=== PATIENT | male | born 1965 | race Caucasian/White ===

== ENCOUNTER → 2022-11-20 08:28 | Outpatient (BNVA) | payer MEDICAID, SELFPAY | PROVIDERS: PCP Family Medicine; Referring Provider Family Medicine; Visit Provider Physician Assistant Surgical | DX: Z13.89 Encounter for screening for other disorder (principal) ==

== ENCOUNTER → 2022-12-04 08:33 | Outpatient (BNVA) | payer MEDICAID, SELFPAY | PROVIDERS: PCP Family Medicine; Visit Provider Physician Assistant | DX: E66.01 Morbid (severe) obesity due to excess calories (principal); Z98.84 Bariatric surgery status; Z68.41 Body mass index [BMI] 40.0-44.9, adult | CPT/HCPCS: 99202 ==

== ENCOUNTER → 2022-12-26 14:42 | Outpatient (BNVA) | payer MEDICAID, SELFPAY | PROVIDERS: PCP Family Medicine; Visit Provider Physician Assistant | DX: E66.01 Morbid (severe) obesity due to excess calories (principal); K22.70 Barrett's esophagus without dysplasia; G80.9 Cerebral palsy, unspecified; Z98.84 Bariatric surgery status; Z68.39 Body mass index [BMI] 39.0-39.9, adult | CPT/HCPCS: 99212 ==

== ENCOUNTER 2022-12-31 09:13 | Outpatient (REF) | payer MEDICAID, SELFPAY ==
--- NOTE | ~2022-12-31 | XR_ITS ---
EXAMINATION: XR CHEST CLINICAL INFORMATION: Morbid obesity COMPARISON: None TECHNIQUE: 2 views of the chest were obtained. FINDINGS: No significant abnormality is noted involving the heart, lungs, mediastinum, bony thorax or soft tissues. XR/XR chest 2V IMPRESSION: No acute disease.
[2022-12-31 09:33] LABS: MANUAL DIFF FLAG NO
--- NOTE | 2022-12-31 09:36 | ECG_ITS ---
Test Reason : e66.01 Blood Pressure : / mmHG Vent. Rate : 079 BPM Atrial Rate : 079 BPM P-R Int : 192 ms QRS Dur : 090 ms QT Int : 380 ms P-R-T Axes : 038 -07 -12 degrees QTc Int : 435 ms Normal sinus rhythm cannot exclude old Inferior infarct , age undetermined ; could be related to body habitus and lead placement Borderline ECG No previous ECGs available Referred By: Camila Mensah Electronically Signed By:DOMINIQUE BROWN
[2022-12-31 10:05] LABS: Basophils Percent Auto 0.5 % (0-2); Eosinophils Absolute Auto 0.2 X10*3/uL (0.0-0.4); Hematocrit 49.1 % (42.0-52.0); Hemoglobin 16.5 g/dl (14.0-18.0); Imm Gran Abs Auto 0.07 X10*3/uL (0.00-0.03); Imm Gran Pct Auto 1.2 % (0.0-0.4); Lymphocytes Absolute Auto 1.5 X10*3/uL (1.2-4.9); Lymphocytes Percent Auto 27.4 % (20-40); Mean Corpuscular HGB Conc 33.6 g/dl (31.0-36.0); Mean Corpuscular Hemoglobin 30.1 pg (27.0-33.0); Mean Corpuscular Volume 89.6 fL (80.0-98.0); Mean Platelet Volume 10.1 fL (9.4-12.4); Monocytes Absolute Auto 0.4 X10*3/uL (0.1-1.2); Monocytes Percent Auto 6.6 % (2-11); Neutrophils Absolute Auto 3.5 x10*3/uL (2.0-8.3); Neutrophils Percent Auto 61.3 % (45-73); Platelet Count 187 X10*3/uL (160-400); Red Blood Count 5.48 X10*6/uL (4.60-5.80); Red Cell Distribution Width 13.4 % (11.0-16.0); White Blood Count 5.6 X10*3/uL (4.8-10.8)
[2022-12-31 10:15] LABS: Estimated Average Glucose 131 mg/dL; Hemoglobin A1c % 6.2 %
[2022-12-31 10:44] LABS: Alanine Aminotransferase 24 U/L (0-40); Albumin Level 4.4 g/dL (3.5-5.0); Alkaline Phosphatase 76 U/L (39-117); Anion Gap 12 (12-20); Aspartate Amino Transferase 27 U/L (5-37); Bilirubin Total 0.9 mg/dL (0.0-1.0); Blood Urea Nitrogen 27 mg/dL (9-16); C Reactive Protein < 0.10 mg/dL (< or = 0.50); Calcium 8.5 mg/dL (8.4-10.2); Carbon Dioxide 26 mmol/L (22-29); Chloride 110 mmol/L (96-108); Cholesterol 167 mg/dL; Estimated Glomerular Filt Rate > 60; Glucose Random 109 mg/dL (60-115); HDL Cholesterol 40 mg/dL; Iron 72 mcg/dL (45-160); LDL Cholesterol Calculated 119 mg/dl; Percent Iron Saturation 21 % (15-50); Potassium 4.2 mmol/L (3.3-5.1); Sodium 144 mmol/L (135-145); Total Iron Binding Capacity 340 mcg/dL (228-428); Triglycerides 44 mg/dL; Unsaturated Iron Binding 268 ug/dL
[2022-12-31 11:21] LABS: Ferritin 15 ng/mL (20-250); Folate 17.6 ng/mL (> or = 4.0); Insulin 12 uU/mL (2-29); TSH reflex Free T4 2.44 uIU/mL (0.32-4.0); Vitamin B12 > 2000 pg/mL (200-900); Vitamin D 25-OH Total 26.6 ng/mL (>30)
[2023-01-02 12:24] LABS: Calcium (PTHI) 8.6 mg/dL (8.6-10.3); PTHI 83 pg/mL (16-77)
[2023-01-04 15:04] LABS: Zinc 63 mcg/dL (60-130)
[2023-01-05 12:20] LABS: Vitamin B1 12 nmol/L (8-30)
[2023-01-06 23:49] LABS: Vitamin A 45 mcg/dL (38-98)
== END 2022-12-31 09:14 | disposition home or self-care (01) ==
LOC: HO.LAB 09:13
PROVIDERS: PCP Family Medicine; Visit Provider Physician Assistant
DX: Z01.818 Encounter for other preprocedural examination (principal); E66.01 Morbid (severe) obesity due to excess calories; Z98.84 Bariatric surgery status
CPT/HCPCS: 36415; 71046; 80053; 80061; 82306; 82607; 82728; 82746; 83036; 83525; 83540; 83970; 84425; 84443; 84590; 84630; 85025; 86140; 93005

== ENCOUNTER → 2023-01-23 13:39 | Outpatient (BNVA) | payer MEDICAID, SELFPAY | PROVIDERS: PCP Family Medicine; Visit Provider Physician Assistant ==

== ENCOUNTER → 2023-02-02 11:05 | Outpatient (BNVA) | payer OTHER, SELFPAY | PROVIDERS: PCP Family Medicine; Visit Provider Dietitian, Registered | DX: E66.01 Morbid (severe) obesity due to excess calories (principal); Z68.38 Body mass index [BMI] 38.0-38.9, adult | CPT/HCPCS: 97802 ==

== ENCOUNTER 2023-02-10 08:35 | Outpatient (REF) | payer OTHER, SELFPAY | END 2023-02-10 08:36 | disposition home or self-care (01) | LOC: HO.US 08:35 | PROVIDERS: PCP Family Medicine; Visit Provider Physician Assistant | DX: Z13.89 Encounter for screening for other disorder (principal) ==

== ENCOUNTER 2023-02-17 | Outpatient (REF) | payer OTHER, SELFPAY ==
[2023-02-21 14:08] LABS: H Pylori Breath Test Negative (Negative)
== END 2023-02-17 00:01 | disposition home or self-care (01) ==
LOC: HO.LNP
PROVIDERS: Visit Provider Physician Assistant
DX: Z01.818 Encounter for other preprocedural examination (principal); E66.01 Morbid (severe) obesity due to excess calories; Z98.84 Bariatric surgery status
CPT/HCPCS: 83013

== ENCOUNTER 2023-02-18 08:44 | Outpatient (REF) | payer OTHER, SELFPAY ==
--- NOTE | ~2023-02-18 | US_ITS ---
EXAMINATION: US COMPLETE ABDOMEN WITH LIVER ELASTOGRAPHY CLINICAL INFORMATION: Morbid/severe obesity due to excess calories. COMPARISON: None available. TECHNIQUE: Real-time imaging of the abdominal viscera. Noninvasive ultrasound liver fibrosis assessment is performed using Jackie ElastPQ point quantification shear wave elastography (2D-SWE) with a C5-2 MHz transducer. Multiple elastography samples are obtained. FINDINGS: PANCREAS: The entire pancreas obscured by gas. ABDOMINAL AORTA: The middle, and distal aortic segments are normal in caliber. The proximal abdominal aorta is obscured by overlying gas. INFERIOR VENA CAVA: Most of the IVC is obscured. LIVER AND DUCTS: The liver demonstrates normal size, contour and increased echogenicity. No focal lesion or intrahepatic biliary duct dilatation. The right lobe measures 16.8 cm in length. The left lobe measures 11.4 cm in length. Portal flow is hepatopedal. Shear wave liver elastography median stiffness is 1.30 m/s (reference: normal median stiffness is 1.3 m/s or less). The median stiffness evaluation is slightly limited due to higher position of liver under subcostal region and increased sample depth from the skin. IQR/median stiffness to assess sampling precision is 0.12 (reference: good quality data set is IQR/median stiffness of 0.15 or less). GALLBLADDER: There are multiple echogenic gallstones without wall thickening. The gallbladder wall thickness measures 0.2 cm. No pericholecystic fluid collection seen. COMMON BILE DUCT: Normal in caliber measuring 0.4 cm in diameter. RIGHT KIDNEY: Normal. No hydronephrosis. No renal calculi or focal parenchymal lesions. The kidney measures 11.3 cm in maximum dimension. LEFT KIDNEY: Normal. No hydronephrosis. No renal calculi or focal parenchymal lesions. The kidney measures 11.9 cm in maximum dimension. SPLEEN: Normal. The spleen measures 12.3 cm in maximum dimension. FREE FLUID: None. US/US abdomen comp w elastography IMPRESSION: Cholelithiasis without wall thickening or tenderness. Mild hepatic steatosis. No focal lesion seen. Liver elastography: Median liver stiffness measures 1.30 m/s corresponding to high probability normal. Please note the evaluation is slightly limited due to subcostal position of the liver and increased depth from the skin. REFERENCE: Society of Radiologists in Ultrasound Liver Stiffness Thresholds (2020): LIVER STIFFNESS THRESHOLDS: *Liver Stiffness equal or less than 1.3 m/s: High probability of being normal. *Liver Stiffness less than 1.7 m/s: In the absence of other known clinical signs, rules out compensated advanced chronic liver disease. *Liver Stiffness 1.7-2.1 m/s: Suggestive of compensated advanced chronic liver disease but need further test for confirmation. *Liver Stiffness over 2.1 m/s: Rules in compensated advanced chronic liver disease. *Liver Stiffness over 2.4 m/s: Suggestive of clinically significant portal hypertension. QUALITY OF DATA SET: *IQR/Median value equal or less than 0.15 implies a quality data set. *IQR/Median value over 0.15 implies a poor quality data set. SIGNIFICANT CHANGE FROM PRIOR EXAM: Significant change if liver stiffness measurement is 10% or greater from prior exam. OTHER CONSIDERATIONS: The stage of liver fibrosis may be overestimated in the setting of acute hepatitis, liver inflammation, elevated liver function tests, hepatic vascular congestion, obstructive cholestasis, non-fasting state, and infiltrative diseases such as amyloidosis and lymphoma. In some patients with NAFLD, the liver stiffness thresholds for compensated advanced chronic liver disease may be lower. In causes other than viral hepatitis and NAFLD, liver stiffness thresholds are not well established.
== END 2023-02-18 08:45 | disposition home or self-care (01) ==
LOC: HO.US 08:44
PROVIDERS: PCP Family Medicine; Visit Provider Physician Assistant
DX: Z01.818 Encounter for other preprocedural examination (principal); K21.9 Gastro-esophageal reflux disease without esophagitis; E66.01 Morbid (severe) obesity due to excess calories; Z98.84 Bariatric surgery status
CPT/HCPCS: 76705; 76981

== ENCOUNTER 2023-02-19 08:01 | Outpatient (REF) | payer OTHER, SELFPAY ==
--- NOTE | ~2023-02-19 | FL_ITS ---
EXAMINATION: XR FLUOROSCOPY UPPER GI WITH AIR CLINICAL INFORMATION: Morbid obesity. COMPARISON: None available. TECHNIQUE: Air-contrast upper GI examination. FINDINGS: There is normal apposition of vocal cords while saying E . There is normal elevation of the soft palate while saying candy . Patient swallowed thin and thick barium and half-inch diameter barium tablet without difficulty. No nasopharyngeal reflux or tracheal aspiration was identified. No persistent esophageal stricture was identified. No definite esophageal ulceration is seen. There is noted to be mild gastroesophageal reflux within the distal third of the esophagus which clears slowly. On some images of the distal esophagus, there appears be a possible sliding hiatal hernia with small ulceration versus old; however, on other images I do not see a hiatal hernia and the gastroesophageal junction is widely patent. This appearance is likely related to sliding hiatal hernia with prominent folds. No definite Zarate's esophagus to this level is identified. Patient is status post gastric bypass surgery with Ruben-en-Y. The gastric remnant is distensible without definite erosion or mass appreciated. There is no delay in gastric emptying. FLUOROSCOPY TIME: 2.8 minutes. DOSE AREA PRODUCT: 48.7-1 Gy-cm2 (tovar-centimeter squared). FL/FL upper GI w air IMPRESSION: Status post gastric bypass with Ruben-en-Y with no abnormal mass to suggest malignancy identified. Probable sliding hiatal hernia with prominent folds. Widely patent gastroesophageal junction with mild reflux.
== END 2023-02-19 08:02 | disposition home or self-care (01) ==
LOC: HO.XRAY 08:01
PROVIDERS: PCP Family Medicine; Visit Provider Physician Assistant
DX: Z01.818 Encounter for other preprocedural examination (principal); E66.01 Morbid (severe) obesity due to excess calories; Z98.84 Bariatric surgery status
CPT/HCPCS: 74246

== ENCOUNTER 2023-03-03 11:56 | Day surgery (SDC) | payer OTHER, SELFPAY ==
--- NOTE | 2023-02-27 21:51 | MHC.SHP ---
Pre-Procedural Eval Section A Date of Service: 02/27/23 The patient is an INPATIENT: No The History & Physical has been completed within 30 days and I have reviewed it.: Yes Section B Chief Complaint: Bariatric surgery status Relevant Family History (Specify if Yes): No Relevant Social History: None Present Medications: None Medical History: No relevant PMH History of Previous Operations: Relevant previous surgery/procedure and date(s) (laparoscopic gastric bypass) Allergies: Allergies Allergy/AdvReac Type Severity Reaction Status Date / Time Penicillins Allergy Mild Hives Verified 02/18/23 09:58 BACTRIM Allergy Severe Anaphylaxis Uncoded 11/20/22 09:08 DOXICYCLINE Allergy Severe Anaphylaxis Uncoded 11/20/22 09:08 TEGRETOL Allergy Severe Anaphylaxis Uncoded 11/20/22 09:08 Review of Systems Sugical H&P ROS: Negative: Constitution, Cardiovascular, Respiratory, Neurological, Psychiatric, Hem-Onc, Allergic/Immunologic, Genitourinary, Musculoskeletal, Integumentary, Endocrine and Eyes/Ears/Nose/Throat and Yes, Specify: Gastrointestinal (GERD) Exam Surgical H&P Exam: Normal: HEENT, Normal: Heart, Normal: Lungs, Normal: Extremities, Normal: Abdomen, Normal: Skin and Normal: Neurological Plan Diagnosis/Plan: Unchanged (EGD to assess for esphagitis. Risks for perforation and bleeding were discussed with patient. She is in agreement with the plan) I have reviewed the history and physical and performed a pertinent physical examination on my patient. No changes have occurred unless specified. Time Spent With Patient Time: Total time managing care of this patient today ____ minutes.
--- NOTE | 2023-03-02 10:21 | HO.ANESPROP2 ---
Documented by User: Isis Ku NP 03/02/23 10:23 HPI - Anesthesia Eval Consult details Narrative: 57yo M for Upper Endoscopy 01/15 cardiac visit - Nml Echo, False + stress test, Minimal CAD single vessel disease by cath, cardiac f/u prn only PMFSH Active Problems Active Problems: All Active Problems (Updated 02/23/23 @ 11:20 by Shikha Bo CMA) Adjustment disorder, unspecified (Acute) Pre-op evaluation (Acute) Cerebral palsy (Acute) Occasional tremors (Acute) Barretts esophagus (Acute) Hx of gastric bypass (Acute) Morbid obesity (Acute) Past Medical History Medical History COVID Family History Family History Mother Heart problem Memory loss Father Stroke Son Obesity Daughter Mental health problem Anxiety Depression Surgical History Surgical History Hx of colonoscopy Hx of gastric bypass Hx of hernia repair Hx of vasectomy Social History Social History Alcohol intake: current Alcohol intake frequency: other Patient Tobacco Use Status: Never used Tobacco Meds Allergies Allergy/AdvReac Type Severity Reaction Status Date / Time sulfamethoxazole Allergy Severe Anaphylaxis Verified 03/02/23 10:43 [From Bactrim] trimethoprim [From Bactrim] Allergy Severe Anaphylaxis Verified 03/02/23 10:43 Penicillins Allergy Mild Hives Verified 02/18/23 09:58 carbamazepine [From Tegretol] Allergy Anaphylaxis Verified 03/02/23 10:43 doxycycline Allergy Anaphylaxis Verified 03/02/23 10:43 Home Medications Medication Instructions Recorded Confirmed Last Taken Type cholecalciferol (vitamin D3) 25 25 mcg PO DAILY 11/20/22 12/26/22 Unknown History mcg (1,000 unit) capsule (Vitamin D3) mecobalamin (vitamin B12) 1,000 1,000 mcg PO DAILY 11/20/22 12/26/22 Unknown History mcg lozenges appkfait-nkgheuqk-yrak 45 mg-folic cap PO 11/20/22 12/26/22 Unknown History acid 800 mcg-vit K 120 mcg capsule (Bariatric Multivitamins) pantoprazole 40 mg tablet,delayed 40 mg PO DAILY 11/20/22 12/26/22 Unknown History release Exam Exam Date and Time: March 02, 2023 1021 Pertinent Lab Results Pertinent Lab Results: Laboratory Tests 12/31/22 12/31/22 09:33 09:33 WBC 5.6 Hgb 16.5 Hct 49.1 Plt Count 187 Sodium 144 Potassium 4.2 Chloride 110 H Carbon Dioxide 26 BUN 27 H Creatinine 1.01 Narrative Narrative: EKG 12/2022 Vent. Rate : 079 BPM ? ? Atrial Rate : 079 BPM ?? P-R Int : 192 ms? QRS Dur : 090 ms ? ? QT Int : 380 ms ? ? ? P-R-T Axes : 038 -07 -12 degrees ?? QTc Int : 435 ms ? Normal sinus rhythm cannot exclude old? Inferior infarct , age undetermined ; could be related to body habitus and lead placement Borderline ECG No previous ECGs available Assessment and Plan Assessment Anesthesia Assessment: Chart Reviewed Documented by User: Anne Marie Rivers MD 03/03/23 13:43 PMFSH Past Medical History Medical History COVID Family History Family History Mother Heart problem Memory loss Father Stroke Son Obesity Daughter Mental health problem Anxiety Depression Surgical History Surgical History Hx of colonoscopy Hx of gastric bypass Hx of hernia repair Hx of vasectomy History of Problems with Anesthesia: No Social History Social History Alcohol intake: current Alcohol intake frequency: other Patient Tobacco Use Status: Never used Tobacco Meds Allergies Allergy/AdvReac Type Severity Reaction Status Date / Time sulfamethoxazole Allergy Severe Anaphylaxis Verified 03/02/23 10:43 [From Bactrim] trimethoprim [From Bactrim] Allergy Severe Anaphylaxis Verified 03/02/23 10:43 Penicillins Allergy Mild Hives Verified 02/18/23 09:58 carbamazepine [From Tegretol] Allergy Anaphylaxis Verified 03/02/23 10:43 doxycycline Allergy Anaphylaxis Verified 03/02/23 10:43 Home Medications Medication Instructions Recorded Confirmed Last Taken Type cholecalciferol (vitamin D3) 25 25 mcg PO DAILY 11/20/22 12/26/22 Unknown History mcg (1,000 unit) capsule (Vitamin D3) mecobalamin (vitamin B12) 1,000 1,000 mcg PO DAILY 11/20/22 12/26/22 Unknown History mcg lozenges nbdelzcq-eglwuegl-ahsz 45 mg-folic cap PO 11/20/22 12/26/22 Unknown History acid 800 mcg-vit K 120 mcg capsule (Bariatric Multivitamins) pantoprazole 40 mg tablet,delayed 40 mg PO DAILY 11/20/22 12/26/22 Unknown History release Exam Airway Mallampati Class: III TM Dist: >3cm Neck ROM: Full Partial: Upper and Lower Loose/Missing/Broken Teeth: Yes, Upper and Lower Heart: RRR Lungs: CTA Assessment and Plan Assessment Anesthesia Assessment: Anesthesia Plan Discussed Final Anesthetic Review History of Problems with Anesthesia: No NPO: Yes ASA Class: III Final Preanesthetic Review: Meds/Allgs Chart Reviewed, Consent Obtained/Reviewed and Anes Risks/Benef Reviewed Patient Risk: Intermediate Procedure Risk: Intermediate Anesthetic Plan Anesthetic Plan: MAC: Disposition: Standard PACU
[2023-03-02 15:18] LABS: COVID-19 Test Negative (Negative); IDNOW Serial# 08D9AD1C
[2023-03-03 12:06] VITALS: BMI 38.5
[2023-03-03 12:09] VITALS: BP 132/75; PULSE 67; RESP 16; TEMP 36.1; O2SAT 98; BMI 38.5
[2023-03-03] MEDS: Lactated Ringers 1,000 ML 80 ML IVCONT (12:45)
[2023-03-03 13:35] VITALS: BP 120/47; PULSE 58; RESP 20; TEMP 36.3; O2SAT 98
--- NOTE | 2023-03-03 13:36 | P.BOP_ITS ---
Brief Operative Note Date of Service: 03/03/23 Pre-op diagnosis: Zarate's esophagus Post-op diagnosis: same (1) hiatal hernia, 2) esophagitis, 3) large gastric pouch, 4) candy cane GJ anastomosis) Procedure: PROCEDURE DATE: 03/03/2023 PREOPERATIVE DIAGNOSIS: GERD, s/p gastric bypass POSTOPERATIVE DIAGNOSIS: ?Same as above. 1) Redundant gastric pouch, 2) Candy cane gastro-jejunostomy, 3) hiatal hernia, 4) esophagitis PROCEDURE: Vghdomqp-dxmneu-iyfgcpihmxo with biopsies Surgeon: ?Jose Manuel Roberts M.D.. Ph.D. Schedule Announcer: ?None ? Anesthesia: IV sedation Estimated blood loss: ?Minimal FINDINGS AND PROCEDURE: ? OPERATIVE INDICATIONS: ?The patient is a 57 year old male known to me who underwent a laparoscopic gastric bypass elsewhere. The patient had inadequate weight loss so far and has GERD and Zarate's esophagus.? Based on this information I recommended an upper endoscopy to evaluate the patient's symptoms.? Risks and complications of the surgery were discussed with the patient in advance particularly the possibility of perforation or bleeding that may require surgical intervention. The patient understood the risks and was in agreement with the plan. ? PROCEDURE: After informed consent was obtained by the patient, the patient was ?transferred to the Operating Room and was placed in the supine position.? After successful induction of IV sedation, a mouth block was placed and the patient was placed in the left lateral decubitus position. An upper endoscopy was performed next, the oropharynx and esophagus appeared within the normal limits. There was a small 3cm hiatal hernia.? The z-line was irregular with tongues of gastric mucosa protruding into the esophagus to more than 50% circumference. Two biopsies were obtained from the distal esophagus 2-3 cm proximal to the GE junction and two biopsies from the GE junction. The gastric pouch was entered, appeared to be very long and lateral redundancy (z-line at 41cm and GJ anastomosis at 58cm). There was no gastritis and the leah rojejunostomy was very large and patent. A biopsy was obtained from the gastric pouch. No significant bleeding was noted from any of the biopsy sites. There was no anastomotic ulcer.? At that point the scope was advanced into the proximal small intestine (proximal Ruben limb) which appeared to be normal. The blind end of the Ruben limb was elongated (candy cane configuration). The Ruben limb and the pouch were decompressed and the scope was withdrawn from the patient's mouth. The patient was awaken and was transferred in stable condition to the Recovery Room for further care. I was present and performed all steps of the procedure. There were no residents to assist with this case. Jose Manuel Roberts M.D., Ph.D. Surgeon: Zelalem Roberts MD Anesthesia: MAC Was an Schedule Announcer used for this Procedure?: No Estimated blood loss (mL): 0 IV fluids (mL): 400 Urine output (mL): 0 (No wharton to record output) Pathology: other (1) gastric pouch, 2) GE junction x2, 3) esophagus x2) Condition: stable Disposition: PACU
[2023-03-03 13:50] VITALS: BP 159/77; PULSE 72; RESP 20; TEMP 36.1; O2SAT 97
== END 2023-03-03 14:25 | disposition home or self-care (01) ==
PROVIDERS: Physician Assistant Surgical; PCP Internal Medicine; Visit Provider Surgery
PROC: 0DJ08ZZ Inspection of Upper Intestinal Tract, Via Natural or Artificial Opening Endoscopic (ICD-10-PCS; CPT 43235; principal; 2023-03-03 12:50)
DX: K21.9 Gastro-esophageal reflux disease without esophagitis (principal); Z98.84 Bariatric surgery status; E66.01 Morbid (severe) obesity due to excess calories; K22.70 Barrett's esophagus without dysplasia; K95.89 Other complications of other bariatric procedure; K91.1 Postgastric surgery syndromes; K44.9 Diaphragmatic hernia without obstruction or gangrene; K20.90 Esophagitis, unspecified without bleeding; Z20.822 Contact with and (suspected) exposure to COVID-19; Z79.899 Other long term (current) drug therapy; Z88.0 Allergy status to penicillin; Z88.8 Allergy status to other drugs, medicaments and biological substances
CPT/HCPCS: 43239; 87635; 88305; 88342

== ENCOUNTER → 2023-03-05 11:16 | Outpatient (BNVA) | payer OTHER, SELFPAY | PROVIDERS: PCP Internal Medicine; Visit Provider Dietitian, Registered | DX: E66.01 Morbid (severe) obesity due to excess calories (principal); E11.8 Type 2 diabetes mellitus with unspecified complications | CPT/HCPCS: 97803 ==

== ENCOUNTER → 2023-03-12 15:30 | Outpatient (BNVA) | payer OTHER, SELFPAY | PROVIDERS: PCP Internal Medicine; Visit Provider Physician Assistant ==

== ENCOUNTER → 2023-03-31 15:35 | Outpatient (BNVA) | payer OTHER, SELFPAY | PROVIDERS: PCP Family Medicine; Visit Provider Physician Assistant ==

== ENCOUNTER → 2023-04-20 13:15 | Outpatient (BNVA) | payer OTHER, SELFPAY | PROVIDERS: PCP Family Medicine; Visit Provider Dietitian, Registered | DX: E66.9 Obesity, unspecified (principal); Z68.37 Body mass index [BMI] 37.0-37.9, adult; Z71.3 Dietary counseling and surveillance | CPT/HCPCS: 97803 ==

== ENCOUNTER → 2023-04-27 15:02 | Outpatient (BNVA) | payer OTHER, SELFPAY | PROVIDERS: PCP Family Medicine; Visit Provider Physician Assistant ==

== ENCOUNTER 2023-05-26 13:45 | Outpatient (AMB) | payer OTHER, SELFPAY ==
--- NOTE | 2023-05-26 13:09 | MHC.OFFVISWM ---
Intake VS Expanded 05/26/23 13:54 Height 6 ft 3.5 in Weight 304 lb 9.6 oz BMI 37.6 BP 128/71 Blood Pressure Location Rt brachial Blood Pressure Position Sitting Pulse 87 Pulse Source Pulse Oximeter Temp 97.5 F Temperature Source Temporal Artery Scan Pulse Oximetry 96 Oxygen Delivery Method Room Air Body Fat 107.4 Body Fat Percentage 35.3 Free Fat Mass 197.0 Muscle Mass 187.4 Visceral Mass 21.0 Water Mass 138.0 BMR 2,749 Intake Visit Reasons: (OV) F/U SWL Allergies sulfamethoxazole [From Bactrim] Allergy (Severe, Verified 05/26/23 13:50) Anaphylaxis trimethoprim [From Bactrim] Allergy (Severe, Verified 05/26/23 13:50) Anaphylaxis Penicillins Allergy (Mild, Verified 05/26/23 13:50) Hives carbamazepine [From Tegretol] Allergy (Verified 05/26/23 13:50) Anaphylaxis doxycycline Allergy (Verified 05/26/23 13:50) Anaphylaxis HPI HPI Comments History of Present Illness Details SWL follow up for revision of previous GBP, [employer] weight of 327 lbs. Patient has lost 22.4 lbs or 6.9% Pt states he is back on his food plan over the last month. Shakes at 17:30 and 11:30 am. Bar or yogurt at 2pm Dinner 6-7pm - 4 oz?? lean protein, and not great vegetable choices. Exercise - walks 6 d/ week, doesn;t use his femi BS - no more lows. Pre op work up completed as follows: [facility] classes - 06/02 appts? -01/29, cleared ? ? RD appts??-02/02 and 03/05, next appt 04/20 per Germaine, cleared H pylori?- yesterday negative Labs - done CXR -normal ECG - borderline, NSR ULS- cholelithiasis, mild steatosis UGI?-?Status post gastric bypass with Ruben-en-Y with no abnormal mass to suggest malignancy identified. ? Probable sliding hiatal hernia with prominent folds. Widely patent gastroesophageal junction with mild reflux. EGD done by Dr Jaki Alonso 2023 - ?patient?is surgical candidate with very long gastric pouch and hiatal hernia, normal pthology other than Barretts esophagus. ?? ? PFSH Medical History COVID Surgical History Hx of colonoscopy Hx of gastric bypass Hx of hernia repair Hx of vasectomy Family History Mother Heart problem Memory loss Father Stroke Son Obesity Daughter Mental health problem Anxiety Depression Social History Alcohol intake: current Alcohol intake frequency: other Patient Tobacco Use Status: Never used Tobacco Physical Exam Vital Signs: Last Vital Signs Temp 97.5 F 05/26/23 13:54 Pulse 87 05/26/23 13:54 BP 128/71 05/26/23 13:54 Pulse Ox 96 05/26/23 13:54 Oxygen Delivery Method Room Air 05/26/23 13:54 BMI result Body Mass Index 38.0 Assessment & Plan Assessment & Plan (1) Morbid obesity: Code(s): E66.01 - Morbid (severe) obesity due to excess calories Plan: SWL pt preparing for revision of previous GBP, approved by Dr Pollack. Pt has new information from his insurance company that our services may not be covered after Jun 25. He will call them for more information. He has lsot 22.4 lbs or 6.9%. We did not make any changes to his meal plan. Exercise - unclear how effective his walks are for weight loss, he is reluctant to change them - he did put a pedometer femi on his phone today and I told him he needs to burn 350 calories on each of his walks - and to vary his routes. He is being scheduled for surgical consultation with Dr Jaki castillo, he will call his insurance company for more information regarding his covered benefits. Patient is morbidly obese and is not considered stable at this time. I spent 30 minutes in total with patient reviewing/updating records, examining the patient and counseling the patient on weight management as detailed above. (2) Hx of gastric bypass: Code(s): Z98.84 - Bariatric surgery status (3) Barretts esophagus: Code(s): K22.70 - Zarate's esophagus without dysplasia (4) Cerebral palsy: Code(s): G80.9 - Cerebral palsy, unspecified Coding Level of Care Code Est Pt Level 4 (42467) Diagnoses Morbid obesity E66.01 Hx of gastric bypass Z98.84 Barretts esophagus K22.70 Cerebral palsy G80.9
[2023-05-26 13:54] VITALS: BP 128/71; PULSE 87; TEMP 36.4; O2SAT 96; BMI 37.6
== END 2023-05-26 14:34 | disposition home or self-care (01) ==
PROVIDERS: PCP Family Medicine; Visit Provider Physician Assistant
DX: E66.01 Morbid (severe) obesity due to excess calories (principal); Z98.84 Bariatric surgery status; K22.70 Barrett's esophagus without dysplasia; G80.9 Cerebral palsy, unspecified
CPT/HCPCS: 99214

== ENCOUNTER → 2023-05-26 13:45 | Outpatient (BNVA) | payer OTHER, SELFPAY | PROVIDERS: PCP Family Medicine; Visit Provider Physician Assistant | DX: E66.01 Morbid (severe) obesity due to excess calories (principal); Z98.84 Bariatric surgery status; G80.9 Cerebral palsy, unspecified ==

== ENCOUNTER 2023-06-08 08:25 | Outpatient (AMB) | payer OTHER, SELFPAY ==
--- NOTE | 2023-06-08 12:11 | A.OFFVIS_ITS ---
Intake VS Expanded 06/08/23 13:01 Height 6 ft 3.5 in Weight 300 lb 8 oz BMI 37.1 Body Fat 116.1 Body Fat Percentage 38.6 Free Fat Mass 184.6 Visceral Mass 18 Water Mass 133.2 BMR 2,195 Intake Visit Reasons: TV Consult/Transfer Camila Allergies sulfamethoxazole [From Bactrim] Allergy (Severe, Verified 06/08/23 12:38) Anaphylaxis trimethoprim [From Bactrim] Allergy (Severe, Verified 06/08/23 12:38) Anaphylaxis Penicillins Allergy (Mild, Verified 06/08/23 12:38) Hives carbamazepine [From Tegretol] Allergy (Verified 06/08/23 12:38) Anaphylaxis doxycycline Allergy (Verified 06/08/23 12:38) Anaphylaxis Medication List - Last Reconciled 06/08/23 by Zelalem Roberts MD blood pressure monitor As directed cholecalciferol (vitamin D3) (Vitamin D3) 25 mcg PO DAILY docusate sodium (Colace) 100 mg PO BID kzekdmxhztqh-owv-obyu-FA-vit K 45 mg iron- 800 mcg-120 mcg (Bariatric Multivitamins) caps PO pantoprazole 40 mg PO DAILY HPI TV Consult/Transfer [facility] HPI Details Start time: 12pm, End time: 1.14pm ?I spent 69 minutes speaking with the patient on the phone plus an additional 5 minutes reviewing and updating records for a total of 74 minutes HPI Comments History of Present Illness Details Overall weight loss: 23.8lbs, or 7.335 TBWL Is doing 2 premade Premier protein shakes, a protein bar and a meal (unmeasured) Exercise: walking x5/week for 350 calories PFSH Medical History (Updated 06/08/23 @ 13:12 by Zelalem Roberts MD) COVID Intestinal malabsorption Surgical History Hx of colonoscopy Hx of gastric bypass Hx of hernia repair Hx of vasectomy Family History Mother Heart problem Memory loss Father Stroke Son Obesity Daughter Mental health problem Anxiety Depression Social History Alcohol intake: current Alcohol intake frequency: other Patient Tobacco Use Status: Never used Tobacco Assessment & Plan Assessment & Plan (1) Obesity: Code(s): E66.9 - Obesity, unspecified Plan: 1. Plan for lap sleeve resection of the gastric pouch including upper GI endoscopy. All tests has been completed and reviewed and the patient is cleared for the surgery. ?If diaphragmatic or ventral hernias are present at time of surgery, these will be repaired laparoscopically as well. Risks and complications were discussed in detail including possible conversion to an open procedure, anastomotic leak, bleeding requiring transfusion, small bowel obstruction, , DVT and pulmonary embolism, cardiac, or pulmonary complications, as nursing home complications such as anastomotic ulcer, insufficient weight loss and vitamin deficiencies. I emphasized the importance of close follow-up, adherence to instructions and good communication. So far he has proven to be an excellent communicator and very compliant with all our directions accomplishing a godd weight loss. I believe that he is a good candidate and he is ready. I also told him that there is a possibility of not completing his surgery if I don't feel the anatomy is clear enough to perform the procedure safely and he understands that. 2. Change nutritional plan to one premade Premier protein shake at 7am-9am, 3 Zone Perfect protein bars at 10am-12pm, 1pm-3pm and 4pm-6pm, dinner at 7pm (8 forks of protein and 8 forks of salad or vegetables). If hungry after dinner, do another HALF Zone Perfect protein bar at 9pm-10pm 3. Continue walking 5 days per week and increase calories per walk to 400 4. Send me weight measurements weekly 5. Put a towel under the abdominal pannus continuously to prevent contact between the pannus and the genital area. Please shower daily with antibacterial soap and specifically put soap and water in this area. Apply the antibiotic ointment I will prescribe in this area when it is dry every 8 hours (2) BMI 37.0-37.9, adult: Code(s): Z68.37 - Body mass index [BMI] 37.0-37.9, adult (3) Barretts esophagus: Code(s): K22.70 - Zarate's esophagus without dysplasia (4) Hx of gastric bypass: Code(s): Z98.84 - Bariatric surgery status (5) Intestinal malabsorption: Code(s): K90.9 - Intestinal malabsorption, unspecified (6) Panniculitis: Code(s): M79.3 - Panniculitis, unspecified Telehealth Telehealth Location of provider rendering services: practice address Location of patient: address on file Patient Identification confirmed using: Name, : Yes Telehealth method: voice only Patient verbally consented to treatment: Yes Patient verbally consented to billing insurance company: Yes Minutes spent on Phone/Video with Pt.: 74 Coding Level of Care Code Tele Est Pt Level 5 (53373) Diagnoses Obesity E66.9 BMI 37.0-37.9, adult Z68.37 Barretts esophagus K22.70 Hx of gastric bypass Z98.84 Intestinal malabsorption K90.9 Panniculitis M79.3 Time Spent (min) 74
[2023-06-08 13:01] VITALS: BMI 37.1
== END 2023-06-08 13:15 | disposition home or self-care (01) ==
PROVIDERS: PCP Family Medicine; Visit Provider Surgery
DX: E66.9 Obesity, unspecified (principal); Z68.37 Body mass index [BMI] 37.0-37.9, adult; Z98.84 Bariatric surgery status; K90.9 Intestinal malabsorption, unspecified
CPT/HCPCS: 99443

== ENCOUNTER → 2023-06-08 08:25 | Outpatient (BNVA) | payer OTHER, SELFPAY | PROVIDERS: PCP Family Medicine; Visit Provider Surgery ==

== ENCOUNTER 2023-07-01 07:59 | Outpatient (AMB) | payer OTHER, SELFPAY ==
--- NOTE | 2023-07-01 08:01 | A.OFFVIS_ITS ---
Intake VS Expanded 07/01/23 08:15 Height 6 ft 3.5 in Weight 292 lb 3.2 oz BMI 36.0 BP 107/53 L Blood Pressure Location Rt brachial Blood Pressure Position Sitting Pulse 90 Pulse Source Pulse Oximeter Temp 96.5 F L Temperature Source Tympanic Pulse Oximetry 97 Oxygen Delivery Method Room Air Body Fat 103.6 Body Fat Percentage 35.5 Free Fat Mass 188.4 Muscle Mass 179.2 Visceral Mass 20.0 Water Mass 127.6 BMR 2,615 Intake Visit Reasons: (OV) Pre Op LSG 07/07/23 Allergies sulfamethoxazole [From Bactrim] Allergy (Severe, Verified 07/01/23 08:46) Anaphylaxis trimethoprim [From Bactrim] Allergy (Severe, Verified 07/01/23 08:46) Anaphylaxis Penicillins Allergy (Mild, Verified 07/01/23 08:46) Hives carbamazepine [From Tegretol] Allergy (Verified 07/01/23 08:46) Anaphylaxis doxycycline Allergy (Verified 07/01/23 08:46) Anaphylaxis linezolid Allergy (Verified 07/01/23 08:46) Rash Bqtbtan-NFX-PjE Reductase Inhibitor Allergy (Verified 07/01/23 08:46) Unknown Medication List - Last Reconciled 07/01/23 by Zelalem Roberts MD blood pressure monitor As directed cholecalciferol (vitamin D3) (Vitamin D3) 25 mcg PO DAILY docusate sodium (Colace) 100 mg PO DAILY docusate sodium (Colace) 100 mg PO BID famotidine 20 mg PO DAILY PRN ppllohlfauwk-syh-vand-FA-vit K 45 mg iron- 800 mcg-120 mcg (Bariatric Multivit amins) 2 caps PO DAILY ondansetron 4 mg PO Q12H pantoprazole 40 mg PO DAILY polyethylene glycol 3350 (Miralax) 17 grams PO DAILY sucralfate 10 mL PO BID HPI HPI Comments History of Present Illness Details Overall weight loss: 32.4lbs, or 10% TBWL Is doing 4 Premier protein shakes per day Exercise: walking 4 miles per day [facility] Medical History (Updated 06/30/23 @ 10:11 by Zelalem Roberts MD) Anxiety Barretts esophagus Cellulitis COVID Depression Diabetes mellitus GERD (gastroesophageal reflux disease) Hepatitis History of headache Intermittent explosive disorder Intestinal malabsorption PTSD (post-traumatic stress disorder) Sleep apnea Urethral stricture Surgical History History of ear surgery Hx of colonoscopy Hx of gastric bypass Hx of hernia repair Hx of vasectomy Family History Mother Heart problem Memory loss Father Stroke Son Obesity Daughter Mental health problem Anxiety Depression Social History Are you a primary hearing healthcare practitioner to a significant other at home: No Do you presently have visiting nurse or other home services: No Alcohol intake: current Alcohol intake frequency: does not drink Patient Tobacco Use Status: Never used Tobacco Physical Exam Vital Signs: Last Vital Signs Temp 96.5 F L 07/01/23 08:15 Pulse 90 07/01/23 08:15 BP 107/53 L 07/01/23 08:15 Pulse Ox 97 07/01/23 08:15 Oxygen Delivery Method Room Air 07/01/23 08:15 BMI result Body Mass Index 36.0 GI Inspection: Yes normal to inspection, Yes incision (well healed), Yes Abdominal panniculus present and Yes obesity Palpation (GI): Soft to palpation Extrem Right lower extremity: normal to inspection Left lower extremity: normal to inspection Assessment & Plan Assessment & Plan (1) Obesity: Code(s): E66.9 - Obesity, unspecified Plan: 1. Plan for lap sleeve gastrectomy including upper GI endoscopy. All tests has been completed and reviewed and the patient is cleared for the surgery. ?If diaphragmatic or ventral hernias are present at time of surgery, these will be repaired laparoscopically as well. Risks and complications were discussed in detail including possible conversion to an open procedure, anastomotic leak, bleeding requiring transfusion, small bowel obstruction, , DVT and pulmonary embolism, cardiac, or pulmonary complications, as snf complications such as anastomotic ulcer, insufficient weight loss and vitamin deficiencies. I emphasized the importance of close follow-up, adherence to instructions and good communication. So far he has proven to be an excellent communicator and very compliant with all our directions accomplishing a great weight loss. I believe that he is an excellent candidate and he is ready. ?I also told him that there is a possibility of not completing his surgery if I don't feel the anatomy is clear enough to perform the procedure safely and he understands that. 2. Preop prescriptions were provided and explained the purpose of each one. Need to be purchased preop. Start Pantoprazole now as you get it from the pharmacy, 1 pill per day. Sucralfate and Zofran are for after surgery as needed. 3. Bowel prep: please do 7 packets ?of Miralax mixing each one with a an 8oz glass of water, crystal light, gatorade zero, or propel ?on07/05/23 and the same amount on 07/06/23. Continue the protein shakes during? the bowel prep. 4. Needs to purchase 1oz medicine cups . 5. Needs to purchase Children's liquid Tylenol for postop pain control. 6. He needs to stop the aspirin which he has already stopped. Avoid aspirin, motrin, Advil, Aleve, Ibuprofen, Naproxyn. Tylenol is OK. 7. He needs to purchase the Celebrate 4:1 protein shakes from the hospital's gift shop. 8. Will do basic preop blood work-up any day between Thursday09/30/22 and Thursday10/02/23 fasting for 12 hours and is scheduled to see the Anesthesiologist prior to the day of surgery. 9. Importance of adherence to postop folllow-up and recommendations was underscored and she understands that. 10. Continue with the 4 premade Premier protein shakes per day at 9am-11am, 2pm- 4pm, 6pm-8pm and 9pm-11pm 11. No soups, broths or V8 12. The patient's?medical?history has been reviewed and they are considered low risk for post op DVT and therefore DVT prophylaxis is not considered necessary. Travel after surgery was reviewed. The patient has not disclosed any travel plans during the first 30 days after surgery and they have been advised that within the first 30 days after surgery any bus, plane, train or car travel over 2 hours in duration is contraindicated due to the possibility of developing blood clots from immobility. Any travel, needs to include periods of ambulation of 10 minutes in duration every 2 hours.? Patient was instructed to discuss any plans for travel during this period with their bariatric surgeon.? 13. Please take at the day of surgery the following medications: 14. Absolutely no smoking or vaping, or marijuana until the surgery and for at least the first 4 weeks. Only nicotine patches are allowed. 15. Send me weight measurements on and then on the day of surgery before you go to the hospital. 16. Avoid any steroids by mouth for any reason. Let me know if someone prescribes them to you (2) BMI 37.0-37.9, adult: Code(s): Z68.37 - Body mass index [BMI] 37.0-37.9, adult (3) Barretts esophagus: Code(s): K22.70 - Zarate's esophagus without dysplasia Orders: Orders Type and Screen Today E66.9 - Obesity, unspecified, Z68.37 - Body mass index [BMI] 37.0-37.9, adult Comprehensive Met. Panel Today E66.9 - Obesity, unspecified, Z68.37 - Body mass index [BMI] 37.0-37.9, adult C Reactive Protein Today E66.9 - Obesity, unspecified, Z68.37 - Body mass index [BMI] 37.0-37.9, adult Hemoglobin A1c Today E66.9 - Obesity, unspecified, Z68.37 - Body mass index [BMI] 37.0-37.9, adult Insulin Today E66.9 - Obesity, unspecified, Z68.37 - Body mass index [BMI] 37.0- 37.9, adult Lipid Panel Today E66.9 - Obesity, unspecified, Z68.37 - Body mass index [BMI] 37.0-37.9, adult TSH reflex Free T4 Today E66.9 - Obesity, unspecified, Z68.37 - Body mass index [BMI] 37.0-37.9, adult Prothrombin Time INR Today E66.9 - Obesity, unspecified, Z68.37 - Body mass index [BMI] 37.0-37.9, adult Partial Thromboplastin Time Today E66.9 - Obesity, unspecified, Z68.37 - Body mass index [BMI] 37.0-37.9, adult Complete Blood Count Auto Diff Today E66.9 - Obesity, unspecified, Z68.37 - Body mass index [BMI] 37.0-37.9, adult Medications: New sucralfate 10 mL PO BID 400 mL 2RF K22.70 - Zarate's esophagus without dysplasia ondansetron Only take one every 12 hours as needed if you have nausea 4 mg PO Q12H 20 tabs 0RF nausea and vomiting R11.0 - Nausea polyethylene glycol 3350 (Miralax) Mix each packet with 8oz of water, Crystal light, or Gatorade zero, or Propel and do 7 packets on 07/05/23 and another 7 packets on 07/06/23 17 grams PO DAILY 14 ea 0RF Z01.818 - Encounter for other preprocedural examination Coding Level of Care Code Est Pt Level 4 (68635) Diagnoses Obesity E66.9 BMI 37.0-37.9, adult Z68.37 Barretts esophagus K22.70 Time Spent (min) 30
[2023-07-01 08:15] VITALS: BP 107/53; PULSE 90; TEMP 35.8; O2SAT 97; BMI 36.0
== END 2023-07-01 09:05 | disposition home or self-care (01) ==
PROVIDERS: PCP Family Medicine; Visit Provider Surgery
DX: E66.9 Obesity, unspecified (principal); Z68.37 Body mass index [BMI] 37.0-37.9, adult; K22.70 Barrett's esophagus without dysplasia
CPT/HCPCS: 99214

== ENCOUNTER → 2023-07-01 07:59 | Outpatient (BNVA) | payer OTHER, SELFPAY | PROVIDERS: PCP Family Medicine; Visit Provider Surgery ==

== ENCOUNTER 2023-07-07 06:27 | Inpatient (IN) | payer MEDICAID, SELFPAY ==
[2023-06-25 11:38] VITALS: BMI 35.6
[2023-07-01 09:21] LABS: MANUAL DIFF FLAG NO
[2023-07-01 09:35] LABS: Basophils Percent Auto 0.5 % (0-2); Eosinophils Absolute Auto 0.2 X10*3/uL (0.0-0.4); Eosinophils Percent Auto 2.9 % (0-4); Hematocrit 48.3 % (42.0-52.0); Hemoglobin 16.5 g/dl (14.0-18.0); Imm Gran Abs Auto 0.08 X10*3/uL (0.00-0.03); Imm Gran Pct Auto 1.3 % (0.0-0.4); Lymphocytes Absolute Auto 1.5 X10*3/uL (1.2-4.9); Lymphocytes Percent Auto 24.3 % (20-40); Mean Corpuscular HGB Conc 34.2 g/dl (31.0-36.0); Mean Corpuscular Hemoglobin 30.1 pg (27.0-33.0); Mean Platelet Volume 10.3 fL (9.4-12.4); Monocytes Absolute Auto 0.4 X10*3/uL (0.1-1.2); Platelet Count 196 X10*3/uL (160-400); Red Blood Count 5.49 X10*6/uL (4.60-5.80); Red Cell Distribution Width 13.5 % (11.0-16.0); White Blood Count 6.2 X10*3/uL (4.8-10.8)
[2023-07-01 09:38] LABS: INTERNATIONAL NORM RATIO 1.1 (0.9-1.1); Prothrombin Time 12.8 SEC (11.1-13.3)
[2023-07-01 09:41] LABS: Partial Thromboplastin Time 30.6 SEC (26.0-36.4)
[2023-07-01 09:46] LABS: Estimated Average Glucose 108 mg/dL; Hemoglobin A1C 150.8672 umol/L; Hemoglobin A1c % 5.4 % (<6.0)
[2023-07-01 10:25] LABS: Alanine Aminotransferase 19 U/L (0-40); Albumin Level 4.4 g/dL (3.5-5.0); Alkaline Phosphatase 66 U/L (39-117); Anion Gap 14 (12-20); Aspartate Amino Transferase 24 U/L (5-37); Blood Urea Nitrogen 29 mg/dL (9-16); C Reactive Protein 0.77 mg/dL (< or = 0.50); Calcium 9.3 mg/dL (8.4-10.2); Carbon Dioxide 25 mmol/L (22-29); Chloride 107 mmol/L (96-108); Cholesterol 165 mg/dL (<200); Creatinine Clr Calc Pharmacy 129.1; Estimated Glomerular Filt Rate > 60; Glucose Random 131 mg/dL (60-115); HDL Cholesterol 42 mg/dL (>40); LDL Cholesterol Calculated 112 mg/dL (<100); Sodium 142 mmol/L (135-145); Total Protein 7.5 g/dL (6.5-8.0); Triglycerides 57 mg/dL (<150)
[2023-07-01 10:43] LABS: Insulin 10 uU/mL (2-29); TSH reflex Free T4 2.13 uIU/mL (0.32-4.0)
--- NOTE | 2023-07-03 23:27 | MHC.SHP ---
Pre-Procedural Eval Section A Date of Service: 07/03/23 The patient is an INPATIENT: Yes The History & Physical has been completed within 30 days and I have reviewed it.: Yes Section B Chief Complaint: Obesity, unspecified Relevant Family History (Specify if Yes): No Relevant Social History: None Present Medications: None Medical History: No relevant PMH History of Previous Operations: Relevant previous surgery/procedure and date(s) (Laparoscopic gastric bypass) Allergies: Allergies Allergy/AdvReac Type Severity Reaction Status Date / Time sulfamethoxazole Allergy Severe Anaphylaxis Verified 07/01/23 08:46 [From Bactrim] trimethoprim [From Bactrim] Allergy Severe Anaphylaxis Verified 07/01/23 08:46 Penicillins Allergy Mild Hives Verified 07/01/23 08:46 carbamazepine [From Tegretol] Allergy Anaphylaxis Verified 07/01/23 08:46 doxycycline Allergy Anaphylaxis Verified 07/01/23 08:46 linezolid Allergy Rash Verified 07/01/23 08:46 Bbbxtfs-BVV-HcN Reductase Allergy Unknown Verified 07/01/23 08:46 Inhibitor Review of Systems Sugical H&P ROS: Negative: Constitution, Cardiovascular, Respiratory, Neurological, Psychiatric, Hem-Onc, Allergic/Immunologic, Gastrointestinal, Genitourinary, Musculoskeletal, Integumentary, Endocrine and Eyes/Ears/Nose/Throat Exam Surgical H&P Exam: Normal: HEENT, Normal: Heart, Normal: Lungs, Normal: Extremities, Normal: Abdomen, Normal: Skin and Normal: Neurological Plan Diagnosis/Plan: Unchanged I have reviewed the history and physical and performed a pertinent physical examination on my patient. No changes have occurred unless specified. Time Spent With Patient Time: Total time managing care of this patient today ____ minutes.
--- NOTE | 2023-07-06 09:13 | P.CONAN_ITS ---
Documented by User: Isis Ku NP 07/06/23 09:14 HPI - Anesthesia Eval Consult details Narrative: 58yo M for Revision of Gastric Bypass to Laproscopic Sleeve Gastrectomy, EGD, possible diaphragmatic hernia, possible ventral hernia, possible open s/p gastric bypass 2016 [facility] Active Problems Active Problems: All Active Problems (Updated 06/25/23 @ 11:25 by Julieta Rhodes RN) Constipation (Acute) Morbid obesity (Acute) Barretts esophagus (Acute) Occasional tremors (Acute) Cerebral palsy (Acute) Pre-op evaluation (Acute) Adjustment disorder, unspecified (Acute) Obesity (Acute) BMI 37.0-37.9, adult (Acute) Panniculitis (Acute) Intestinal malabsorption (Acute) Hx of gastric bypass (Acute) Past Medical History Medical History Cellulitis Urethral stricture Diabetes mellitus GERD (gastroesophageal reflux disease) Barretts esophagus Hepatitis Intermittent explosive disorder PTSD (post-traumatic stress disorder) Anxiety Depression History of headache Sleep apnea Intestinal malabsorption COVID Family History Family History Mother Heart problem Memory loss Father Stroke Son Obesity Daughter Mental health problem Anxiety Depression Surgical History Surgical History History of ear surgery Hx of gastric bypass Hx of colonoscopy Hx of vasectomy Hx of hernia repair History of Problems with Anesthesia: No Social History Social History Are you a primary insurance healthcare consultant to a significant other at home: No Do you presently have visiting nurse or other home services: No Alcohol intake: current Alcohol intake frequency: does not drink Patient Tobacco Use Status: Never used Tobacco Use of substances other than those prescribed or required for medical reasons: No Have you been hit, kicked, punched, or otherwise hurt by someone within the past year? If so, by whom?: No Advance Directives: No Advance Directives Information Provided: No Advance Directives on File: No Recently lost weight without trying: No Nutrition Risks: No Nutritional Risk Poor oral hygiene: No Meds Allergies Allergy/AdvReac Type Severity Reaction Status Date / Time sulfamethoxazole Allergy Severe Anaphylaxis Verified 07/01/23 08:46 [From Bactrim] trimethoprim [From Bactrim] Allergy Severe Anaphylaxis Verified 07/01/23 08:46 Penicillins Allergy Mild Hives Verified 07/01/23 08:46 carbamazepine [From Tegretol] Allergy Anaphylaxis Verified 07/01/23 08:46 doxycycline Allergy Anaphylaxis Verified 07/01/23 08:46 linezolid Allergy Rash Verified 07/01/23 08:46 Prfvlkv-ZWP-VbP Reductase Allergy Unknown Verified 07/01/23 08:46 Inhibitor Home Medications Medication Instructions Recorded Confirmed Last Taken Type cholecalciferol (vitamin D3) 25 25 mcg PO DAILY 11/20/22 07/07/23 07/06/23 History mcg (1,000 unit) capsule (Vitamin D3) jcdbyduz-ofvzutsq-rhpt 45 mg-folic 2 cap PO DAILY 11/20/22 07/07/23 07/06/23 History acid 800 mcg-vit K 120 mcg capsule (Bariatric Multivitamins) pantoprazole 40 mg tablet,delayed 40 mg PO DAILY 11/20/22 07/07/23 Unknown History release Exam Exam Date and Time: July 06, 2023 0913 Height,Weight and Vital Signs: Height 6 ft 4 in Weight 132.63 kg Pertinent Lab Results Pertinent Lab Results: Laboratory Tests 07/01/23 07/01/23 09:14 09:20 WBC 6.2 RBC 5.49 Hgb 16.5 Hct 48.3 MCV 88.0 MCH 30.1 MCHC 34.2 RDW 13.5 Plt Count 196 MPV 10.3 Immature Gran % (Auto) 1.3 H Neut % (Auto) 64.0 Lymph % (Auto) 24.3 [place] % (Auto) 7.0 Eos % (Auto) 2.9 Baso % (Auto) 0.5 Lymph # (Auto) 1.5 [place] # (Auto) 0.4 Eos # (Auto) 0.2 Baso # (Auto) 0.0 Abs Immat Gran (auto) 0.08 H Absolute Neuts (auto) 4.0 Absolute Nucleated RBC 0.000 Nucleated RBC % (auto) 0.0 PT 12.8 INR 1.1 APTT 30.6 Sodium 142 Potassium 4.0 Chloride 107 Carbon Dioxide 25 Anion Gap 14 BUN 29 H Creatinine 0.95 Estim Creat Clear Calc 129.1 Estimated GFR > 60 Random Glucose 131 H Estimat Average Glucose 108 Hemoglobin A1c % 5.4 Insulin Level 10 Calcium 9.3 D Total Bilirubin 1.0 AST 24 ALT 19 Alkaline Phosphatase 66 C-Reactive Protein 0.77 H Total Protein 7.5 Albumin 4.4 Triglycerides 57 Cholesterol 165 LDL Cholesterol, Calc 112 H HDL Cholesterol 42 TSH 2.13 Blood Type O Positive Antibody Screen NEGATIVE Narrative Narrative: EKG 12/2022 Vent. Rate : 079 BPM Atrial Rate : 079 BPM P-R Int : 192 ms QRS Dur : 090 ms QT Int : 380 ms P-R-T Axes : 038 -07 -12 degrees QTc Int : 435 ms Normal sinus rhythm cannot exclude old Inferior infarct , age undetermined ; could be related to body habitus and lead placement Borderline ECG No previous ECGs available Assessment and Plan Assessment Anesthesia Assessment: Chart Reviewed Final Anesthetic Review History of Problems with Anesthesia: No Documented by User: Samina Chatterjee MD 07/07/23 07:42 [facility] Active Problems Active Problems: All Active Problems (Updated 07/07/23 @ 07:15 by Samina Chatterjee MD) Constipation (Acute) Morbid obesity (Acute) Barretts esophagus (Acute) Occasional tremors (Acute) Cerebral palsy (Acute)- Mild Pre-op evaluation (Acute) Adjustment disorder, unspecified (Acute) Obesity (Acute) BMI 37.0-37.9, adult (Acute) Panniculitis (Acute) Intestinal malabsorption (Acute) Hx of gastric bypass (Acute) Hard of hearing. Several ear surgeries EMANUEL- not needed CPAP since bypass surgery in 2017 Past Medical History Medical History Cellulitis Urethral stricture Diabetes mellitus GERD (gastroesophageal reflux disease) Barretts esophagus Hepatitis Intermittent explosive disorder PTSD (post-traumatic stress disorder) Anxiety Depression History of headache Sleep apnea Intestinal malabsorption COVID Family History Family History Mother Heart problem Memory loss Father Stroke Son Obesity Daughter Mental health problem Anxiety Depression Family history of problems with anesthesia: No Surgical History Surgical History History of ear surgery Hx of gastric bypass Hx of colonoscopy Hx of vasectomy Hx of hernia repair Social History Social History Are you a primary insurance healthcare consultant to a significant other at home: No Do you presently have visiting nurse or other home services: No Alcohol intake: current Alcohol intake frequency: does not drink Patient Tobacco Use Status: Never used Tobacco Use of substances other than those prescribed or required for medical reasons: No Have you been hit, kicked, punched, or otherwise hurt by someone within the past year? If so, by whom?: No Advance Directives: No Advance Directives Information Provided: No Advance Directives on File: No Recently lost weight without trying: No Nutrition Risks: No Nutritional Risk Poor oral hygiene: No Meds Allergies Allergy/AdvReac Type Severity Reaction Status Date / Time sulfamethoxazole Allergy Severe Anaphylaxis Verified 07/01/23 08:46 [From Bactrim] trimethoprim [From Bactrim] Allergy Severe Anaphylaxis Verified 07/01/23 08:46 Penicillins Allergy Mild Hives Verified 07/01/23 08:46 carbamazepine [From Tegretol] Allergy Anaphylaxis Verified 07/01/23 08:46 doxycycline Allergy Anaphylaxis Verified 07/01/23 08:46 linezolid Allergy Rash Verified 07/01/23 08:46 Bjioqbu-FKP-FfY Reductase Allergy Unknown Verified 07/01/23 08:46 Inhibitor Home Medications Medication Instructions Recorded Confirmed Last Taken Type cholecalciferol (vitamin D3) 25 25 mcg PO DAILY 11/20/22 07/07/23 07/06/23 History mcg (1,000 unit) capsule (Vitamin D3) lwbcnbwr-tggpltam-lhof 45 mg-folic 2 cap PO DAILY 11/20/22 07/07/23 07/06/23 History acid 800 mcg-vit K 120 mcg capsule (Bariatric Multivitamins) pantoprazole 40 mg tablet,delayed 40 mg PO DAILY 11/20/22 07/07/23 Unknown History release Exam Height,Weight and Vital Signs: Height 6 ft 4 in Weight 132.63 kg Vital Signs Temp Pulse Resp BP Pulse Ox O2 Del Method 07/07/23 06:06 98 F 92 20 118/64 96 Room Air Airway Mallampati Class: II TM Dist: >3cm Neck ROM: Full Partial: Upper and Lower Loose/Missing/Broken Teeth: Yes (Denies broken or loose teeth) Heart: RRR Lungs: CTAB Assessment and Plan Assessment Anesthesia Assessment: Anesthesia Plan Discussed Final Anesthetic Review Family History of Problems with Anesthesia: No NPO: Yes ASA Class: III Final Preanesthetic Review: No Changes in Pt Med Stat, Meds/Allgs Chart Reviewed, Consent Obtained/Reviewed and Anes Risks/Benef Reviewed Patient Risk: Intermediate Procedure Risk: Intermediate Assessment/Block/Sedation in SS: Assess/Block/Sedation-SS Anesthetic Plan Anesthetic Plan: GA Disposition: Standard PACU
[2023-07-07] VITALS (14 sets, daily range): BP systolic 111–141; BP diastolic 54–81; PULSE 82–92; RESP 15–20; TEMP 36–36.6; O2SAT 91–99
[2023-07-07] MEDS: Aprepitant 32 MG/4.4 ML VIAL IVPUSH (06:30)
[2023-07-07] MEDS: Lactated Ringers 1,000 ML 999 ML IV (06:38)
--- NOTE | 2023-07-07 07:13 | PHA.MEDREC ---
Pharmacy Consult ? Medication Reconciliation Pharmacy has completed the medication reconciliation. Reviewed med rec done by nursing
--- NOTE | 2023-07-07 07:44 | P.BOP_ITS ---
Brief Operative Note Date of Service: 07/07/23 Pre-op diagnosis: Severe obesity with comorbidities (see below) Post-op diagnosis: same Procedure: PROCEDURE: Hkvexwtn-fqarrq-apznuceydcn, laparoscopic excision of esophageal lipoma, laparoscopic repair of incarcerated diaphragmatic hernia, laparoscopic lysis of adhesions and laparoscopic sleeve gastrectomy INDICATIONS: This is a 58 year-old male with a BMI of 40.1 kg/m2, history of failed gastric bypass surgery and associated comorbid conditions as described previously. After appropriate workup and a 39.8 lbs, or 10.41% TBWL preoperative weight loss, the patient was electively scheduled for laparoscopic, possibly open sleeve gastrectomy of the gastric pouch. The risks and complications of the procedure were discussed with the patient in advance, particularly the possibility of ; pulmonary embolism; staple line leak; bleeding; GERD; cardiac, pulmonary, or renal complications; as well as long-term problems such as insufficient weight loss, vitamin deficiency, strictures, or ulcers. The patient understood all the risks, and was in agreement to proceed with surgery. DESCRIPTION OF PROCEDURE: After informed consent was obtained from the patient, the patient was given preoperative antibiotics, and was transferred to the operating room. After successful induction of general anesthesia, pneumatic compressive devices were placed on both lower extremities. An upper endoscopy was performed next. The oropharynx and esophagus appeared to be within normal limits. There was a diaphragmatic hernia present of moderate size consistent with the findings of the preoperative upper GI. The stomach was entered. Then after all fluid and air were suctioned and the stomach was fully decompressed, the scope was withdrawn and secured in the mid esophagus. The patient was then prepped and draped in the usual sterile manner, and abdominal access was established at the right upper quadrant with the Romero technique. A 12 mm blunt port was inserted, and the abdomen was insufflated with CO2 to a pressure of 15 mmHg. Under direct visualization, additional ports were placed, specifically two 5 mm Versi-step ports to the left upper quadrant, and a 5 mm Versi-Step port to the right upper quadrant. 1% lidocained plan was used to infiltrate all port sites as well as all fascia defects. Following that, the patient was placed in a steep reverse Trendelenburg position. An additional 5 mm port was placed to the right flank for the Mediflex retractor that was used to retract the left lobe of the liver. There were adhesions between the undersurface of the left lobe of the liver wh ich was lysed with the Thunderbeat. Once this was done the liver retractor was re-positioned to get exposure to the hiatal area. Some omental fat overlying the Ruben limb was mobilized and the gastro- jejunostomy was identified. I continued by dissecting between the gastric remnant and the gastric pouch . Separation of the gastric pouch from the gastric remnant was difficult because the previous surgeon had created a dog ear of the remnant stomach that was densely adherent to the gastric pouch. Nevertheless, those were divided and that allowed exposure to the left mateusz The gastro-esophageal fat pad was opened with the ultrasonic device (Thunderbeat, Olympus) and the anterior esophagus and hiatus were exposed. The angle of His was opened with the ultrasonic device the fundus of the stomach from any diaphragmatic and splenic attachments. Adhesiolysis took approximately 90 min to complete. There was an obvious significant-sized hiatal hernia. I continued dissecting along the hiatus toward the left mateusz and the angle of His. I fully mobilized the fat pad that was incarcerated in the hernia. I then continued by dissecting even further into the posterior retro-esophageal space all the way to the angle of His. I continued to mobilize the esophagus into the mediastinum circumferentially. Both vagal nerves were seen and preserved. At that point, I was able to have at least 3 to 5 cm of esophagus into the abdomen.? After I completely mobilized the esophagus from both the left and right mateusz and I had a good mobilization of the esophagus circumferentially, I closed the hernia defect with two interrupted #0 Surgidac sutures using the Endo Stitch device, which were placed one anterior and one posterior to the esophagus. ? The gastric pouch was made long from the prevous surgeon, probably because of his height and an effort to avoid tension to the GJ anastomosis. There was significant redundancy of the stomach laterally and posteriorly. The redundant stomach was then divided with four Endo THAD-45 and one THAD-60 articulating purple load using the AEON stapler and loads. Every effort was made that the gastric sleeve had a tubular shape and an even caliber throughout. Once the sleeve resection was completed, the staple line of the gastric sleeve was reinforced with Hemoclips. The resected stomach and esophageal lipoma were retrieved without difficulty from the Romero port. ?An upper endoscopy was performed. There was no narrowing at the GE junction. The scope was easily advanced all the way to the pylorus which was clearly visualized. There was no narrowing anywhere and the sleeve's caliber was even throughout. The sleeve's staple line was inspected and there was no evidence of ischemia, bleeding or dehiscence. At that point the gastroscope was withdrawn from the patient?s mouth while we were decompressing the bowel and the stomach from any remaining air. I looked into the lesser sac to see how the sleeve was situating and it was situating well. There was no bleeding from the staple line, spleen, or short gastric vessels. The Mediflex retractor was removed, and the undersurface of the liver was inspected and there was no bleeding. The patient was placed in supine position. I closed the fascial defect of the 12 mm port site with a figure of eight #1 Polysorb suture. Then 30cc Ropivacaine plain with 10 mg of Dexamethasone were used to infiltrate the fascial closure as well as all skin incisions. A total of ml Zynrelef was applied in the Romero wound. At this point, the abdomen was deflated, all ports were removed under direct vision, and no bleeding was noted from any of the port sites. The skin incisions were irrigated with saline and were closed with 4-0 absorbable monofilament sutures. Steri-Strips and OpSites were used to cover all incisions. The patient was extubated and was transferred in stable condition to the recovery room for further care. I was present and performed all cobian parts of the procedure. Ms. Mensah was the assistant import manager. There were no residents to assist with this case. Jose Manuel Roberts MD, PhD, FACS Surgeon: Zelalem Roberts MD Anesthesia: GETA, local and other (TAP block and 7ml Zynrelef) Was an Harmonic Analyst used for this Procedure?: No Harmonic Analyst: Camila Mensah Estimated blood loss (mL): 10 IV fluids (mL): 4,500 Urine output (mL): 150 Pathology: other (1) Stomach, 2) esophageal lipoma, 3) esophageal fat pad) Condition: stable Disposition: PACU
--- NOTE | 2023-07-07 07:46 | P.PNGS_ITS ---
Subjective Subjective Date of Service: 07/08/23 Interval history: Feels well. Mild incisional pain. He is tolerating phase 1 bariatric diet Physical Exam 2 Vital Signs: Vital Signs: Last Vital Signs Temp 98 F 07/07/23 06:06 Pulse 92 07/07/23 06:06 Resp 20 07/07/23 06:06 BP 118/64 07/07/23 06:06 Pulse Ox 96 07/07/23 06:06 O2 Del Method Room Air 07/07/23 06:06 BMI result Body Mass Index 35.6 GI: Inspection: Yes normal to inspection, Yes incision (clean, dry and intact) and Yes obesity Palpation (GI): Soft to palpation Extrem: Right lower extremity: normal to inspection (no calf tenderness) L eft lower extremity: normal to inspection (no calf tenderness) Objective Data Active Medications Fentanyl (Fentanyl Citrate/Pf 100 Mcg/2 Ml Vial) 25 mcg IVPUSH Q5M PRN; Protocol PRN Reason: Pain, Moderate(Pain Scale 4-6) Hydromorphone HCl (Hydromorphone Hcl 0.5 Mg/0.5 Ml Syringe) 0.25 mg IVPUSH Q5M PRN; Protocol PRN Reason: Pain, Severe (Pain Scale 7-10) Lactated Ringer's (Lr) 1,000 mls @ 999 mls/hr IV .Q1H1M [facility] Stop: 07/07/23 08:30 Last Admin: 07/07/23 06:38 Dose: 999 mls/hr Documented By: YOSHI Lactated Ringer's (Lr) 1,000 mls @ 100 mls/hr IVCONT .Q10H [facility] Promethazine HCl 6.25 mg/ (Sodium Chloride) 50.25 mls @ 201 mls/hr IV ONCE PRN PRN Reason: Nausea and Vomiting Ondansetron HCl (Ondansetron Hcl 4 Mg/2 Ml Vial) 4 mg IVPUSH ONCE PRN PRN Reason: Nausea and Vomiting Labs 07/08/23 05:48 07/08/23 05:48 Procedures Date of Service Date of Service: 07/08/23 Progress Note: A&P Assessment and plan (1) Obesity: Status: Acute Assessment and Plan: s/p laparoscopic sleeve gastrectomy of the gastric pouch, lysis of adhesions, excision of esophageal lipoma, diaphragmatic hernia repair Doing well Will check am labs and if OK the patient will be discharged [place] (2) BMI 35.0-35.9,adult: Status: Acute (3) Sleep apnea: Status: Acute (4) GERD (gastroesophageal reflux disease): Status: Acute (5) Diaphragmatic hernia: Status: Acute (6) Barretts esophagus: Status: Acute (7) Steatosis, liver: Status: Acute (8) Cholelithiasis: Status: Acute (9) S/P laparoscopic sleeve gastrectomy: Status: Acute (10) Status post repair of paraesophageal diaphragmatic hernia: Status: Acute (11) Intra-abdominal adhesions: Status: Acute (12) Lipoma of intra-abdominal organ: Status: Acute Time Spent With Patient Time: Total time managing care of this patient today ____ minutes. Quality Stroke Does the patient have a stroke diagnosis?: No VTE Prior VTE?: No VTE Risk Level:: Surgical - moderate VTE Device Contraindication: N/A - Device Ordered VTE Drug Contraindication: Treatment Not Indicated
--- NOTE | 2023-07-07 11:37 | P.DS_ITS ---
DS: Providers Provider Date of Service: 07/08/23 Date of admission: 07/07/23 06:27 Primary care physician: Harvey Causey DO DS: Diagnosis Discharge Diagnosis (1) Obesity: Status: Acute (2) BMI 35.0-35.9,adult: Status: Acute (3) Sleep apnea: Status: Acute (4) GERD (gastroesophageal reflux disease): Status: Acute (5) Diaphragmatic hernia: Status: Acute (6) Barretts esophagus: Status: Acute (7) Steatosis, liver: Status: Acute (8) Cholelithiasis: Status: Acute DS: Summary Hospital Course Hospital Course: ADMITTING DIAGNOSIS: morbid obesity, diaphragmatic hernia, Bareets esophagus, GERD, EMANUEL DISCHARGE DIAGNOSIS: same, s/p laparoscopic sleeve gastrectomy and repair diaphragmatic hernia PAST SURGICAL HISTORY: gastric bypass, ventral hernia repair, vasectomy PROCEDURE: upper endoscopy, laparoscopic sleeve gastrectomy and repair of diaphragmatic hernia hernia DISCHARGE SUMMARY: History of Present Illness: The patient is a 58 year-old woman with a BMI of 40.0 kg/m2 and associated co- morbidities as described above. The patient had extensive work-up, lost 32.4 lbs preoperatively and was electively scheduled for laparoscopic, possible open sleeve gastrectomy and gastropexy. Risks and complications of the surgery were discussed with the patient in advance, particularly the possibility of , pulmonary embolism, anastomotic leak, bleeding, bowel injury, GERD, cardiac, renal or pulmonary complications. The patient understood all the risks and was in agreement with the surgical plan. Hospital Course: The patient underwent an uneventful laparoscopic sleeve gastrectomy with gastropexy and repair of diaphragmatic hernia on the day of admission. Postoperatively, the patient was transferred to the surgical floor. The patient received IV Acetaminophen and IV dilaudid for pain control. Patient was started on bariatric phase 1 diet POD #0. On postoperative day one, the patient was feeling well without nausea, vomiting, fevers, or tachycardia. The patient had some mild incisional pain and the abdomen was soft. On the morning of postoperative day one, the patient was continued on 1 ounce of water or ice every half hour. During the day, the patient did fairly well, having some incisional pain, but able to ambulate adequately and to tolerate liquids well. Since the patient is doing well, we decided that the patient was ready to be discharged. The patient was given instructions to follow-up with me next week and to call my office for any fever over 101, persistent abdominal pain, nausea, vomiting, GERD, symptoms of DVT such as calf tenderness, or leg swelling, or pulmonary embolism such as chest pain or shortness of breath. The patient was also instructed to drink 40-60 ounces of liquids per day using the 1-ounce cups. The patient had been given prescriptions for Tylenol for pain, Zofran prn for nausea, and pantoprazole and carafate previously. The patient was encouraged to ambulate and use the incentive spirometer. The patient was allowed to shower, but no baths, and encouraged to stay active at home. All of these instructions were given to the patient personally. All questions were answered and the patient understood all instructions, the instructions were also given to the patient in print. Time Spent with Patient Time attestation: Total time managing care of this patient today ____ minutes. Discharge coordination time: Less than 30 minutes Quality: Safe Use of Opioids Does Pt have an Active Cancer Diagnosis on the Problem List?: No Quality: Stroke Does the patient have a stroke diagnosis?: No Physical Exam Vital Signs: Vital Signs: Last Vital Signs Temp 98 F 07/07/23 06:06 Pulse 92 07/07/23 06:06 Resp 20 07/07/23 06:06 BP 118/64 07/07/23 06:06 Pulse Ox 96 07/07/23 06:06 O2 Del Method Room Air 07/07/23 06:06 BMI result Body Mass Index 35.6 DS: Data Data Completed and Pending Pending studies at discharge: Pending at discharge 07/07/23 11:01 Surgical [PTH] Routine Discharge Plan Discharge Anticipated Discharge Date/Time: 07/08/23 10:33 Patient Disposition: Home, Self-Care Discharge Diagnosis: S/P SLEEVE GASTRECTOMY AND HIATAL HERNIA REPAIR Referrals: Harvey Causey DO [Primary Care Provider] - 1 Week Discharge Medications: Continued (DME) blood pressure monitor Kit See Rx Instructions .Route Qty: 1 0RF Rx Instructions: As directed docusate sodium [Colace] 100 mg capsule 100 mg PO BID Qty: 60 5RF pantoprazole 40 mg tablet,delayed release (DR/EC) 40 mg PO DAILY Patient Comments: postop meds ondansetron 4 mg tablet,disintegrating 4 mg PO Q12H Qty: 20 0RF Patient Comments: postop meds Rx Instructions: Only take one every 12 hours as needed if you have nausea Held Bariatric Multivitamins 45 mg iron- 800 mcg-120 mcg capsule 2 cap PO DAILY Hold Instructions: Do not use now if having Celebrate 4:1 proteinshakes Discontinued cholecalciferol (vitamin D3) [Vitamin D3] 25 mcg (1,000 unit) capsule 25 mcg PO DAILY Discharge Orders: Discharge Order (Routine); Ordered 07/08/23 Ordered By: Zelalem Roberts Activity on Discharge: No heavy lifting Stand Alone Forms: Patient Portal Discharge page Care Plan Goals: weight loss Health Concerns: obesity Plan of Treatment: No tub baths, sex or returning to work until discussed at first post op appointment. No exercise, alcohol, tobacco or illegal drug use. Continue to use incentive spirometer hourly while awake. Walk in home for 5- 10 minutes every 2 hours during the first week. Continue phase 1 diet today and start phase 2 diet tomorrow morning. Follow all instructions in the bariatric handbook and call with any questions. 1. Please call your doctor or come back to the emergency room should any new symptoms arise. 2. You will receive a courtesy call from [facility] 24-48 hours after discharge. 3. Activity: abstain from alcohol, practice limited stair climbing, no bending, no driving, no exercise, no illicit substances, no lifting, no sex, no tub bath, no work. 4. Diet: continue as discussed with bariatric team.. 5. Dressing Change/Wound Care: Do not change or remove surgical dressings unless they are wet or soiled. 6. Call your doctor if: - Your temperature exceeds 101.5 F - You experience excessive pain or swelling - You have an unexpected reaction to medication - You have excessive bleeding - You experience continued vomiting/nausea - Your incision begins to separate - Your incision shows signs of infection such as increased redness, swelling, excessive pain, heat, or drainage (light blood or clear fluid is normal) 7. General instructions: No lifting greater than 5 lbs for 1 week and not more than 20lbs the next 3?weeks. No driving until seen at the office in 5-7 days after surgery. If you do not move your bowels in the next 2 days, please tell?Dr. Roberts. Please walk around your home every hour or two to prevent blood clots from forming in your legs. You do not need to wake from sleeping to walk. Please sleep in a bed or couch to prevent kinking at the hips and knees. Please take your incentive spirometer (your lung tool and die maker apprentice) home with you and use it for the next few days to prevent pneumonia. You may shower, no hot tubs, baths or swimming pools.?Please follow the post op diet instructions you are?given by Dr Jaki mata? and text me daily at 5-6pm for an update.?If you have any issues or concerns or questions please communicate this to him via text.? The Celebrate shakes have all of the bariatric vitamins you need if you consume these shakes. If you are drinking other protein shakes, you will need to purchase the Celebrate multivitamins and calcium that are available in the hospital gift shop on the first floor of the [facility].??Do not take anything without first discussing with Dr Roberts. Please make sure you are consuming at least 40 ounces of fluids per day starting the?day AFTER your discharge from the hospital. Always drink 1-2 ml per minute using the 5ml?syringe. If you drink faster you may experience?bloating,?gas pain, burping, nausea or heartburn. In that case please slow down your pace and use the syringe to?understand better the?proper?pace and volume of drinking. Do not hesitate to contact the office with any questions at . The patient's medical history has been reviewed and they are considered low risk for post op DVT and therefore DVT prophylaxis is not considered necessary. Travel after surgery was reviewed. The patient has not disclosed any travel plans during the first 30 days after surgery and they have been advised that within the first 30 days after surgery any bus, plane, train or car travel over 2 hours in duration is contraindicated due to the possibility of developing blood clots from immobility. Any travel, needs to include periods of ambulation of 10 minutes in duration every 2 hours. The patient was instructed to discuss any plans for travel during this period with their bariatric surgeon. Assessment: s/p sleeve gastrectomy and diaphragmatic hernia repair after gastric bypass
[2023-07-07 12:07] LABS: Hematocrit 42.7 % (42.0-52.0); Hemoglobin 14.4 g/dl (14.0-18.0)
[2023-07-07 12:19] LABS: Anion Gap 12 (12-20); Blood Urea Nitrogen 21 mg/dL (9-16); Calcium 8.3 mg/dL (8.4-10.2); Carbon Dioxide 24 mmol/L (22-29); Chloride 106 mmol/L (96-108); Creatinine Clr Calc Pharmacy 134.7; Estimated Glomerular Filt Rate > 60; Glucose Random 175 mg/dL (60-115); Potassium 4.3 mmol/L (3.3-5.1); Sodium 138 mmol/L (135-145)
[2023-07-07] MEDS: ondansetron HCL 4 MG/2 ML VIAL IVPUSH ×2 (14:06→21:59)
[2023-07-07] MEDS: Famotidine/PF 20 MG/2 ML VIAL IVPUSH ×2 (14:06→21:59)
[2023-07-07] MEDS: Lactated Ringers 1,000 ML 125 ML IVCONT ×2 (14:09→21:59)
[2023-07-07] MEDS: Acetaminophen 1,000 MG/100 ML PIGGYBACK 16.7 MG IV ×2 (14:12→19:26)
[2023-07-07] MEDS: 0.9 % Sodium Chloride Flush 3 ML SYRINGE IVFLUSH (21:59)
[2023-07-08] VITALS: BP 133/75; PULSE 82; RESP 19; TEMP 36.6; O2SAT 96
[2023-07-08] MEDS: Acetaminophen 1,000 MG/100 ML PIGGYBACK 16.7 MG IV (01:31)
--- NOTE | 2023-07-08 02:26 | PC.NURSE ---
pt's wharton due to be removed at 0400 but pt requested to have it removed now because it was causing him some discomfort. removed wharton at 0220. will continue to monitor.
[2023-07-08 03:17] VITALS: BP 129/69; PULSE 74; RESP 20; TEMP 36.2; O2SAT 95
[2023-07-08] MEDS: Lactated Ringers 1,000 ML 125 ML IVCONT (06:05)
[2023-07-08 06:06] LABS: MANUAL DIFF FLAG NO
[2023-07-08] MEDS: ondansetron HCL 4 MG/2 ML VIAL IVPUSH (06:06)
[2023-07-08 06:12] LABS: Basophils Percent Auto 0.1 % (0-2); Hematocrit 41.8 % (42.0-52.0); Hemoglobin 14.3 g/dl (14.0-18.0); Imm Gran Abs Auto 0.16 X10*3/uL (0.00-0.03); Imm Gran Pct Auto 1.7 % (0.0-0.4); Lymphocytes Absolute Auto 0.7 X10*3/uL (1.2-4.9); Lymphocytes Percent Auto 7.7 % (20-40); Mean Corpuscular HGB Conc 34.2 g/dl (31.0-36.0); Mean Corpuscular Hemoglobin 30.2 pg (27.0-33.0); Mean Corpuscular Volume 88.4 fL (80.0-98.0); Mean Platelet Volume 10.2 fL (9.4-12.4); Monocytes Absolute Auto 0.5 X10*3/uL (0.1-1.2); Neutrophils Absolute Auto 7.8 x10*3/uL (2.0-8.3); Neutrophils Percent Auto 85.5 % (45-73); Platelet Count 158 X10*3/uL (160-400); Red Blood Count 4.73 X10*6/uL (4.60-5.80); Red Cell Distribution Width 13.4 % (11.0-16.0); White Blood Count 9.2 X10*3/uL (4.8-10.8)
[2023-07-08 06:23] LABS: Anion Gap 12 (12-20); Blood Urea Nitrogen 15 mg/dL (9-16); Calcium 8.4 mg/dL (8.4-10.2); Carbon Dioxide 24 mmol/L (22-29); Chloride 107 mmol/L (96-108); Creatinine Clr Calc Pharmacy 147.7; Estimated Glomerular Filt Rate > 60; Glucose Random 121 mg/dL (60-115); Sodium 139 mmol/L (135-145)
[2023-07-08 07:35] VITALS: BP 134/67; PULSE 75; RESP 18; TEMP 36.2; O2SAT 94
[2023-07-08] MEDS: Famotidine/PF 20 MG/2 ML VIAL IVPUSH (07:59)
--- NOTE | 2023-07-08 08:30 | HO.POSTANES ---
Post Anesthesia Evaluation Post Anesthesia Evaluation Date of Service: 07/08/23 Vital Signs: Vital Signs Temp Pulse Resp BP Pulse Ox O2 Del Method 07/08/23 07:35 97.2 F 75 18 134/67 94 Room Air 07/08/23 03:17 97.2 F 74 20 129/69 95 Room Air 07/08/23 00:00 97.8 F 82 19 133/75 96 Room Air Anesthesia: General Endotracheal-GETA Mental Status: Awake Pain Control: Satisfactory Nausea/Vomiting: None Hydration: Adequate Anesthesia-Related Issues: No Anes. Related Issues
--- NOTE | 2023-07-08 08:56 | MHC.CM.PN ---
pt dcd home no servcies are needed
== END 2023-07-08 09:09 | disposition home or self-care (01) | DRG 403 ==
LOC: HO.SSSA 11:37 → HO.S3 12:46
PROVIDERS: Physician Assistant; Admitting Provider Surgery; PCP Internal Medicine; Visit Provider Surgery
PROC: 0DQ64ZZ Repair Stomach, Percutaneous Endoscopic Approach (ICD-10-PCS; CPT 43771; principal; 2023-07-07 07:30)
DX: E66.01 Morbid (severe) obesity due to excess calories (principal); K44.0 Diaphragmatic hernia with obstruction, without gangrene; K76.0 Fatty (change of) liver, not elsewhere classified; D17.79 Benign lipomatous neoplasm of other sites; G47.33 Obstructive sleep apnea (adult) (pediatric); F43.10 Post-traumatic stress disorder, unspecified; K21.9 Gastro-esophageal reflux disease without esophagitis; K22.70 Barrett's esophagus without dysplasia; K66.0 Peritoneal adhesions (postprocedural) (postinfection); Z98.84 Bariatric surgery status; Z68.41 Body mass index [BMI] 40.0-44.9, adult; Z79.899 Other long term (current) drug therapy
CPT/HCPCS: 36415; 80048; 80053; 80061; 83036; 83525; 84443; 85014; 85018; 85025; 85610; 85730; 86140; 86850; 86900; 86901; 88304; 88307; 88342; A4649; C9088; C9145; J0131; J0690; J1100; J1170; J1956; J2250; J2371; J2405; J2795; J3010

== ENCOUNTER → 2023-07-07 06:27 | Outpatient (BNV) | payer MEDICAID, SELFPAY | PROVIDERS: Admitting Provider Surgery; PCP Internal Medicine; Visit Provider Surgery | DX: E66.01 Morbid (severe) obesity due to excess calories (principal); Z68.41 Body mass index [BMI] 40.0-44.9, adult; K44.0 Diaphragmatic hernia with obstruction, without gangrene; K66.0 Peritoneal adhesions (postprocedural) (postinfection); D13.0 Benign neoplasm of esophagus | CPT/HCPCS: 43281; 43775 ==

== ENCOUNTER 2023-07-14 10:18 | Outpatient (AMB) | payer OTHER, SELFPAY ==
--- NOTE | 2023-07-14 11:01 | A.OFFVIS_ITS ---
Intake VS Expanded 3 07/14/23 11:04 Height 6 ft 3.5 in Weight 279 lb 9.6 oz BMI 34.5 BP 115/62 Blood Pressure Location Rt brachial Blood Pressure Position Sitting Respiratory Rate 16 Pulse 80 Pulse Source Pulse Oximeter Temp 98.2 F Temperature Source Temporal Artery Scan Pulse Oximetry 98 Oxygen Delivery Method Room Air Body Fat 95.2 Body Fat Percentage 34.1 Free Fat Mass 184.4 Muscle Mass 175.2 Visceral Mass 19.0 Water Mass 124.8 BMR 2,540 Intake Visit Reasons: (OV) 7 Days PO LSG 07/07/23 Allergies sulfamethoxazole [From Bactrim] Allergy (Severe, Verified 07/14/23 11:04) Anaphylaxis trimethoprim [From Bactrim] Allergy (Severe, Verified 07/14/23 11:04) Anaphylaxis Penicillins Allergy (Mild, Verified 07/14/23 11:04) Hives carbamazepine [From Tegretol] Allergy (Verified 07/14/23 11:04) Anaphylaxis doxycycline Allergy (Verified 07/14/23 11:04) Anaphylaxis linezolid Allergy (Verified 07/14/23 11:04) Rash [id number]-UgX Reductase Inhibitor Allergy (Verified 07/14/23 11:04) Unknown HPI HPI Comments 2 History of Present Illness0 Details 58 yo male s/p LSG on 07/12/[address] Amari Nation 3 celebrate 4:1 shakes w 1 scoop each and 40-50 oz fluids daily pos bm no sig pain developed a faint redness around the midline incision over the last 24 hours without pain or warmth PFSH Medical History Constipation Panniculitis BMI 37.0-37.9, adult Adjustment disorder, unspecified Pre-op evaluation Barretts esophagus Morbid obesity Diaphragmatic hernia Cellulitis Urethral stricture Diabetes mellitus GERD (gastroesophageal reflux disease) Barretts esophagus Hepatitis Intermittent explosive disorder PTSD (post-traumatic stress disorder) Anxiety Depression History of headache Sleep apnea Intestinal malabsorption COVID Surgical History History of ear surgery Hx of gastric bypass Hx of colonoscopy Hx of vasectomy Hx of hernia repair Family History Mother Heart problem Memory loss Father Stroke Son Obesity Daughter Mental health problem Anxiety Depression Social History Household Members: Family Housing: House Are you a primary residential care officer to a significant other at home: No Do you presently have visiting nurse or other home services: No Alcohol intake: current Alcohol intake frequency: does not drink Patient Tobacco Use Status: Never used Tobacco Physical Exam Vital Signs: Last Vital Signs Temp 98.2 F 07/14/23 11:04 Pulse 80 07/14/23 11:04 Resp 16 07/14/23 11:04 BP 115/62 07/14/23 11:04 Pulse Ox 98 07/14/23 11:04 Oxygen Delivery Method Room Air 07/14/23 11:04 BMI result Body Mass Index 34.5 GI Other: mild mild induration without tenderness at midline incision, no warmth or discharge Assessment & Plan Assessment & Plan (1) S/P laparoscopic sleeve gastrectomy: Code(s): Z98.84 - Bariatric surgery status Plan: POD 7 s/p LSG on 07/12/[address] Roberts Weight loss prior to surgery was 32.9 pounds or 10.1% TBWL. Original weight on 12/04/22 was 324.6 pounds and op weight was 291.7 pounds. Be sure to text Dr Roberts exactly 1 week after surgery your weight from your home scale so he can adjust your meal plan. Continue meal plan until f/u thais azar in 2 weeks May shower, no submersion in bath for another week Continue abdominal binder with activity and exercise for the next 2 weeks. Exercise prior to surgery was walking, may resume No abdominal exercises for 6 weeks post operatively Will be emailed link to post op video for review Reminded of the pace of drinking, 2 mL per minute, 1 oz/15 min. Instructed to text right away if any change to abdominal discoloration Coding Level of Care Code Global (11634) Diagnoses S/P laparoscopic sleeve gastrectomy Z98.84
[2023-07-14 11:04] VITALS: BP 115/62; PULSE 80; RESP 16; TEMP 36.8; O2SAT 98; BMI 34.5
== END 2023-07-14 12:18 | disposition home or self-care (01) ==
PROVIDERS: PCP Family Medicine; Visit Provider Physician Assistant Surgical
DX: E66.9 Obesity, unspecified (principal); Z68.34 Body mass index [BMI] 34.0-34.9, adult; Z90.3 Acquired absence of stomach [part of]; Z98.84 Bariatric surgery status
CPT/HCPCS: 99024

== ENCOUNTER → 2023-07-14 10:18 | Outpatient (BNVA) | payer OTHER, SELFPAY | PROVIDERS: PCP Family Medicine; Visit Provider Physician Assistant Surgical ==

== ENCOUNTER 2023-08-05 13:55 | Outpatient (AMB) | payer OTHER, SELFPAY ==
--- NOTE | 2023-08-05 13:56 | A.OFFVIS_ITS ---
Intake VS Expanded 08/05/23 14:09 BP 129/56 L Blood Pressure Location Rt brachial Blood Pressure Position Sitting Pulse 103 H Pulse Source Pulse Oximeter Temp 96.6 F L Temperature Source Tympanic Pulse Oximetry 97 Oxygen Delivery Method Room Air Height 6 ft 3.5 in Weight 274 lb 6.4 oz BMI 33.8 Body Fat % 31.5 Body Fat Mass 86.4 Fat Free Mass 187.8 Visceral Fat Rating 17.0 Body Water % 47.5 Body Water Mass 130.2 Muscle Mass/Score 178.6 Basal Metabolic Rate/Score 2,576 Intake Visit Reasons: (OV) PO LSG 07/07/23 Block Saw Operator Required: No Allergies sulfamethoxazole [From Bactrim] Allergy (Severe, Verified 08/05/23 13:59) Anaphylaxis trimethoprim [From Bactrim] Allergy (Severe, Verified 08/05/23 13:59) Anaphylaxis Penicillins Allergy (Mild, Verified 08/05/23 13:59) Hives carbamazepine [From Tegretol] Allergy (Verified 08/05/23 13:59) Anaphylaxis doxycycline Allergy (Verified 08/05/23 13:59) Anaphylaxis linezolid Allergy (Verified 08/05/23 13:59) Rash Lgzgttx-XIM-KtP Reductase Inhibitor Allergy (Verified 08/05/23 13:59) Unknown Medication List - Last Reconciled 08/05/23 by PIETRO Valadez blood pressure monitor As directed docusate sodium (Colace) 100 mg PO BID xuozvlowxiim-upg-lkdx-FA-vit K 45 mg iron- 800 mcg-120 mcg (Bariatric Multivitamins) 2 caps PO DAILY pantoprazole 40 mg PO DAILY sucralfate (Carafate) PO HPI HPI Comments History of Present Illness Details This?a?58?yo male who is s/p LSG without hiatal hernia repair on?07/07/23. Presents for 1 month post op visit. Weight today is 274.4 pounds, with a BMI of 33.9. There has been a 50.2 pound weight loss,(initial weight 324.6 pounds) since starting the program on 12/04/22 reflecting a 15.4% total body weight loss and a weight loss of 17.3 pounds since surgery (operative weight 291.7 pounds) reflecting a 5.9% TBWL since surgery. No complaints of nausea, emesis, abdominal pain or reflux. Reports infrequent but normal bowel movements every 1- 2 days and uses stool softeners regularly. In here patient states that earlier on today, he noticed a decreased energy when he was on his typical walk. He went back home to apply some powder to his groin which felt somewhat chafed and when he sat down on his bed he laid back with his right side down and felt a sense of room spinning sensation. This in station lasted approximately 3 or 4 minutes at which point resolved completely and he was able to get up and go about the rest of his day. He wants to keep his meal plan the way it is. Present meal plan includes: Celebrate 4 in 1, 2 scoops in 8 oz almond milk 7-9 am, 12-2 Celebrate rebuild 2 scoop in 8 oz almond milk, 4-6 or 5-7 pm ZP bar 8-11 pm drinking 32 oz water daily ? Exercise routine includes: walking outside 5 days per week, approx 4 miles, 350 calories. [facility] Medical History Constipation Panniculitis BMI 37.0-37.9, adult Adjustment disorder, unspecified Pre-op evaluation Barretts esophagus Morbid obesity Diaphragmatic hernia Cellulitis Urethral stricture Diabetes mellitus GERD (gastroesophageal reflux disease) Barretts esophagus Hepatitis Intermittent explosive disorder PTSD (post-traumatic stress disorder) Anxiety Depression History of headache Sleep apnea Intestinal malabsorption COVID Surgical History Hx of laparoscopic partial gastrectomy History of ear surgery Hx of gastric bypass Hx of colonoscopy Hx of vasectomy Hx of hernia repair Family History Mother Heart problem Memory loss Father Stroke Son Obesity Daughter Mental health problem Anxiety Depression Social History Household Members: Family Housing: House Are you a primary respiratory care specialist to a significant other at home: No Do you presently have visiting nurse or other home services: No Alcohol intake: current Alcohol intake frequency: does not drink Patient Tobacco Use Status: Never used Tobacco Review of Systems Const All systems reviewed & are unremarkable except as noted in HPI and below Physical Exam Const General: healthy appearing and no acute distress Resp Effort & Inspection: normal respiratory effort Auscultation: clear to auscultation bilaterally Cardio Rate: regular rate Rhythm: regular rhythm GI Auscultation: normal bowel sounds Extrem General: Yes normal to inspection Assessment & Plan Assessment & Plan (1) Obesity: Code(s): E66.9 - Obesity, unspecified Plan: Patient will continues current meal plan. He was encouraged to increase his exercise to 400 calories burned 5 days a week. He will return to the office in approximately 1 month. He was given my cell phone number to increase co mmunication and to text me weekly with his weight and if he has any questions. Regarding the episode of dizziness, Pia maneuvers were performed and there was no evidence of rotatory nystagmus. Unclear etiology. He will call with any questions. Coding Level of Care Code Global (45525) Diagnoses Obesity E66.9
[2023-08-05 14:09] VITALS: BP 129/56; PULSE 103; TEMP 35.9; O2SAT 97; BMI 33.8
== END 2023-08-05 14:54 | disposition home or self-care (01) ==
PROVIDERS: PCP Family Medicine; Visit Provider Physician Assistant Surgical
DX: E66.9 Obesity, unspecified (principal); Z68.33 Body mass index [BMI] 33.0-33.9, adult
CPT/HCPCS: 99024

== ENCOUNTER → 2023-08-05 13:55 | Outpatient (BNVA) | payer OTHER, SELFPAY | PROVIDERS: PCP Family Medicine; Visit Provider Physician Assistant Surgical ==

== ENCOUNTER → 2023-08-12 09:35 | Outpatient (BNVA) | payer OTHER, SELFPAY | PROVIDERS: PCP Family Medicine; Visit Provider Physician Assistant Surgical ==

== ENCOUNTER 2023-09-02 15:03 | Outpatient (AMB) | payer OTHER, SELFPAY ==
--- NOTE | 2023-09-02 13:58 | MHC.OFFVISWM ---
Intake VS Expanded 09/02/23 13:59 Height 6 ft 3.5 in Weight 259 lb BMI 31.9 Intake Visit Reasons: (tV) PO LSG 07/07/23 Allergies sulfamethoxazole [From Bactrim] Allergy (Severe, Verified 08/05/23 13:59) Anaphylaxis trimethoprim [From Bactrim] Allergy (Severe, Verified 08/05/23 13:59) Anaphylaxis Penicillins Allergy (Mild, Verified 08/05/23 13:59) Hives carbamazepine [From Tegretol] Allergy (Verified 08/05/23 13:59) Anaphylaxis doxycycline Allergy (Verified 08/05/23 13:59) Anaphylaxis linezolid Allergy (Verified 08/05/23 13:59) Rash Wbalupt-HUS-WtQ Reductase Inhibitor Allergy (Verified 08/05/23 13:59) Unknown HPI HPI Comments History of Present Illness Details This?a?58?yo male who is s/p LSG without hiatal hernia repair on?07/07/23. Presents for 2 month post op visit. Weight today is 259 pounds, with a BMI of 31.9. There has been a 65.6 pound weight loss,(initial weight 324.6 pounds) since starting the program on 12/04/22 reflecting a 25.3% total body weight loss and a weight loss of 32.7 pounds since surgery (operative weight 291.7 pounds) reflecting a 11.2% TBWL since surgery. No complaints of nausea, emesis, abdominal pain or reflux. Reports infrequent but normal bowel movements every 1-2 days and uses stool softeners regularly. At the end of last month he was feeling feverish and significant fatigue. He went in to the hospital at [facility] in [place]. There is a concern about possible tick-borne illness. He had a significant workup and there was additional concern about possible gallstones and potentially choledocholithiasis as an etiology. He was Rx abx and has completed a course. He reports that he feels now much better. He is now scheduled for an MRCP and will discuss possible lap ccy with Dr Pollack. He is happy with the results and does not want to change his meal plan. Pt had a appt with his PCP and there was a question about whether he needs to have his gallbladder removed. Present meal plan includes: Celebrate 4 in 1, 2 scoops in 8 oz almond milk 8-10 am, 5-7 pm 3 ZP bar 11-1 pm, 2-4 pm, 8-10 pm drinking 32 oz water daily ? Exercise routine includes: walking outside 5 days per week, approx 4 miles, 350 calories. [facility] Medical History Constipation Panniculitis BMI 37.0-37.9, adult Adjustment disorder, unspecified Pre-op evaluation Barretts esophagus Morbid obesity Diaphragmatic hernia Cellulitis Urethral stricture Diabetes mellitus GERD (gastroesophageal reflux disease) Barretts esophagus Hepatitis Intermittent explosive disorder PTSD (post-traumatic stress disorder) Anxiety Depression History of headache Sleep apnea Intestinal malabsorption COVID Surgical History Hx of laparoscopic partial gastrectomy History of ear surgery Hx of gastric bypass Hx of colonoscopy Hx of vasectomy Hx of hernia repair Family History Mother Heart problem Memory loss Father Stroke Son Obesity Daughter Mental health problem Anxiety Depression Social History Household Members: Family Housing: House Are you a primary health and social care teacher to a significant other at home: No Do you presently have visiting nurse or other home services: No Alcohol intake: current Alcohol intake frequency: does not drink Patient Tobacco Use Status: Never used Tobacco Assessment & Plan Assessment & Plan (1) Obesity: Code(s): E66.9 - Obesity, unspecified Plan: At this time, the patient wants to continue his current meal plan. He is doing very well from an exercise standpoint and will continue walking and tracking his calories. rtc 1 month (2) Cholelithiasis: Code(s): K80.20 - Calculus of gallbladder without cholecystitis without obstruction Plan: History of recent hospitalization for fatigue and fever. He was found to have elevated bilirubin and known history of cholelithiasis. He is scheduled for MRCP tomorrow. Telehealth Telehealth Location of provider rendering services: practice address Location of patient: address on file Patient Identification confirmed using: Name, : Yes Telehealth method: voice only Patient verbally consented to treatment: Yes Patient verbally consented to billing insurance company: Yes Patient informed of any privacy concerns related to visit: Yes Minutes spent on Phone/Video with Pt.: 15 Coding Level of Care Code Global (07029) Diagnoses Obesity E66.9 Cholelithiasis K80.20
[2023-09-02 13:59] VITALS: BMI 31.9
== END 2023-09-02 16:26 | disposition home or self-care (01) ==
LOC: HO.HBS 15:03
PROVIDERS: PCP Family Medicine; Visit Provider Physician Assistant Surgical
DX: E66.9 Obesity, unspecified (principal); K80.20 Calculus of gallbladder without cholecystitis without obstruction
CPT/HCPCS: 99024

== ENCOUNTER → 2023-09-02 15:03 | Outpatient (BNVA) | payer OTHER, SELFPAY | PROVIDERS: PCP Family Medicine; Visit Provider Physician Assistant Surgical | DX: E66.9 Obesity, unspecified (principal); K80.20 Calculus of gallbladder without cholecystitis without obstruction ==

== ENCOUNTER 2023-09-03 09:54 | Outpatient (REF) | payer OTHER, SELFPAY ==
--- NOTE | ~2023-09-03 | MR_ITS ---
EXAMINATION: MR ABDOMEN WITHOUT CONTRAST CLINICAL INFORMATION: Cholelithiasis without evidence of acute cholecystitis COMPARISON: Abdominal ultrasound 02/18/2023 TECHNIQUE: MRI of the abdomen without contrast was obtained using routine sequences. Heavily T2 weighted MRCP sequences were also obtained. FINDINGS: Technically limited exam as portions of the abdomen were excluded from the ckavv-je-izrh and wraparound artifact limits assessment. Of note the lower poles of the kidneys, and upper portion of the liver and spleen were only partially imaged. LUNG BASES: Unremarkable. ABDOMINAL AND PELVIC WALL: Small fat-containing umbilical hernia. LIVER AND BILIARY TREE: No intra or extrahepatic biliary duct dilatation or intraluminal filling defect to suggest choledocholithiasis. No loss of signal on opposed phase imaging to suggest hepatic steatosis. GALLBLADDER: Cholelithiasis without evidence of acute cholecystitis. PANCREAS: Unremarkable. SPLEEN: Visualized portions are unremarkable. ADRENAL GLANDS: Unremarkable. KIDNEYS AND URETERS: Visualized portions are unremarkable. GASTROINTESTINAL TRACT: Unremarkable. VASCULAR: Unremarkable. LYMPH NODES/PERITONEUM: No lymphadenopathy. FREE FLUID: None. OSSEOUS STRUCTURES: Unremarkable. MR/MR MRCP IMPRESSION: 1. Technically limited exam as portions of the abdomen were excluded from the jihnu-fw-fkva and wraparound artifact limits assessment. Of note the lower poles of the kidneys, and upper portion of the liver and spleen were only partially imaged. 2. Cholelithiasis without evidence of acute cholecystitis. No intra or extrahepatic biliary duct dilatation or intraluminal filling defect to suggest choledocholithiasis.
== END 2023-09-03 09:55 | disposition home or self-care (01) ==
LOC: HO.MRI 09:54
PROVIDERS: PCP Family Medicine; Visit Provider Physician Assistant Surgical
DX: K80.20 Calculus of gallbladder without cholecystitis without obstruction (principal)
CPT/HCPCS: 74181

== ENCOUNTER 2023-09-08 09:42 | Outpatient (AMB) | payer OTHER, SELFPAY ==
[2023-09-08 09:46] VITALS: BP 121/63; PULSE 93; TEMP 36.6; O2SAT 94; BMI 32.5
--- NOTE | 2023-09-08 09:46 | A.OFFVIS_ITS ---
Intake Vital Signs 09/08/23 09:46 Height 6 ft 3.5 in Weight 263 lb 10.766 oz BMI 32.5 BP 121/63 Blood Pressure Location Rt brachial Position Sitting Pulse 93 Pulse Source Pulse Oximeter Temp 97.9 F Temp Source Tympanic Pulse Oximetry (%) 94 Oxygen Delivery Method Room Air Intake Visit Reasons: Gallbladder problems Allergies sulfamethoxazole [From Bactrim] Allergy (Severe, Verified 09/08/23 09:46) Anaphylaxis trimethoprim [From Bactrim] Allergy (Severe, Verified 09/08/23 09:46) Anaphylaxis Penicillins Allergy (Mild, Verified 09/08/23 09:46) Hives carbamazepine [From Tegretol] Allergy (Verified 09/08/23 09:46) Anaphylaxis doxycycline Allergy (Verified 09/08/23 09:46) Anaphylaxis linezolid Allergy (Verified 09/08/23 09:46) Rash Oyqrdtk-CTR-DaT Reductase Inhibitor Allergy (Verified 09/08/23 09:46) Unknown HPI HPI Comments History of Present Illness Details The patient is a 58-year-old gentleman seen because of documented cholelithiasis. He is status post laparoscopic gastric bypass (done in [place]) and has a more recent history of GBP revision of the gastric pouch of a hiatal hernia repair earlier this year. He has a h/o Zarate's esophagus; he has been evaluated at outside hospitals due to abdominal pain and elevated liver function tests. He was evaluated for possible Lyme's disease given these elevated LFTs, however these tests were negative. Patient describes a history of biliary colic gall bladder attacks run in my family in the past and states that he does not believe he was having biliary colic. As noted, he reports his mother delayed treatment of her gallbladder disease and notes of rather stormy/complicated case involving his mother and her decisions to put off surgery for almost a decade and that she had retained shavon docholithiasis following cholecystectomy. He states that she is now fully recovered. At today's visit, the patient denies any abdominal pain. He discuss numerous life stressors including vehicles and an upcoming moved to [place]. [facility] Medical History Constipation Panniculitis BMI 37.0-37.9, adult Adjustment disorder, unspecified Pre-op evaluation Barretts esophagus Morbid obesity Diaphragmatic hernia Cellulitis Urethral stricture Diabetes mellitus GERD (gastroesophageal reflux disease) Barretts esophagus Hepatitis Intermittent explosive disorder PTSD (post-traumatic stress disorder) Anxiety Depression History of headache Sleep apnea Intestinal malabsorption COVID Surgical History Hx of laparoscopic partial gastrectomy History of ear surgery Hx of gastric bypass Hx of colonoscopy Hx of vasectomy Hx of hernia repair Family History Mother Heart problem Memory loss Father Stroke Son Obesity Daughter Mental health problem Anxiety Depression Social History Household Members: Family Housing: House Are you a primary memory care director to a significant other at home: No Do you presently have visiting nurse or other home services: No Alcohol intake: current Alcohol intake frequency: does not drink Patient Tobacco Use Status: Never used Tobacco Physical Exam Vital Signs: Last Vital Signs Temp 97.9 F 09/08/23 09:46 Pulse 93 09/08/23 09:46 BP 121/63 09/08/23 09:46 Pulse Ox 94 09/08/23 09:46 Oxygen Delivery Method Room Air 09/08/23 09:46 BMI result Body Mass Index 32.5 On exam, the patient is nontoxic Sclera anicteric Oropharynx is clear, Mallampati class 4 and poor dentition noted He is having no respiratory distress Abdomen is obese with well-healed incisions and no obvious hernia and no tenderness on exam Results Reviewed Results Reviewed: MRCP dated 09/03/23 is reviewed and demonstratesNAFLD, but no intraluminal/CBD defects, strictures or findings concerning for choledocholithiasis Labs dated 07/08/2023 show a normal hemoglobin of 14.3, white count normal at 9.2, platelet count 158 K No significant LFT abnormalities are noted would be consistent with choledocholithiasis Assessment & Plan Assessment & Plan (1) Status post repair of paraesophageal diaphragmatic hernia: Code(s): Z98.890 - Other specified postprocedural states; Z87.19 - Personal history of other diseases of the digestive system (2) Cholelithiasis: Code(s): K80.20 - Calculus of gallbladder without cholecystitis without obstruction (3) Steatosis, liver: Code(s): K76.0 - Fatty (change of) liver, not elsewhere classified (4) Barretts esophagus: Code(s): K22.70 - Zarate's esophagus without dysplasia (5) GERD (gastroesophageal reflux disease): Code(s): K21.9 - Gastro-esophageal reflux disease without esophagitis (6) Sleep apnea: Comment: not current since the weight loss Code(s): G47.30 - Sleep apnea, unspecified (7) Hx of gastric bypass: Comment: 2016 Code(s): Z98.84 - Bariatric surgery status Plan Explained to the patient the difference between biliary colic and choledocholithiasis using a teaching fringing machine operator and explained the significant risk to him of delaying cholecystectomy given the risk of pancreatitis, cholangitis and explained why elective cholecystectomy was preferable to waiting until an emergent/crisis which has increased risks of complication and comorbidities. The option to obtain a 2nd opinion from another physician was discussed but the patient declined this. I recommended a laparoscopic cholecystectomy, possibly open and possible intraoperative cholangiogram. I reviewed the option of continued observation and 2nd opinion which was declined. I also reviewed the inherent risks to surgery which include, but are not limited to: Bleeding that could require another operation or blood transfusion, the need for open surgery, the unlikely but possible issue of bile leak that could require an ERCP, the risk of retained common duct stones that could require an ERCP, the risk of common bile duct injury which would require transfer to a larger institution for another operation. Patient seemed to understand his options, as well as the case that have recognized or unrecognized comorbidity could complicate his care. Patient seemed understand and was looking for guarantees regarding avoiding complications. Explained that it is impossible to guarantee that he would not have any complication and if he was more comfortable seeking his care at a larger institution, but that is his prerogative. Ultimately, the patient thanked me for the Education in stated that he would proceed with surgery here. Instructions regarding diet and activity reviewed and apparently understood. The patient is advised to avoid rich fatty foods postoperatively to avoid GI distress/diarrhea and advised to not lift more than 20 lb for medical reasons to minimize the risk of hernia postoperatively. I recommended that she discuss these restrictions with her employer and that she is not disabled during this time frame but can perform light duty. The patient's questions seemed to be satisfactorily answered. The typical perioperative and postoperative plan including pain management is was discussed with the patient. His void his urinary bladder special education preschool teacher, make arrangements regarding transportation, driving restrictions were also discussed and apparently satisfactory since the patient works as a door-package delivery driver. The possibility of unexpected complications impacting his work was discussed candidly. Patient will receive Levaquin, 500mg IV on-call & and have SCDs. He will contact me if he is clinically worsening or has new questions or concerns per Coding Level of Care Code Est Pt Level 4 (08465) Diagnoses Status post repair of paraesophageal diaphragmatic hernia Z98.890; Z87.19 Cholelithiasis K80.20 Steatosis, liver K76.0 Barretts esophagus K22.70 GERD (gastroesophageal reflux disease) K21.9 Sleep apnea G47.30 Hx of gastric bypass Z98.84
== END 2023-09-08 11:43 | disposition home or self-care (01) ==
PROVIDERS: PCP Family Medicine; Visit Provider Surgery
DX: K80.20 Calculus of gallbladder without cholecystitis without obstruction (principal); Z98.890 Other specified postprocedural states; Z87.19 Personal history of other diseases of the digestive system; K76.0 Fatty (change of) liver, not elsewhere classified; K22.70 Barrett's esophagus without dysplasia; K21.9 Gastro-esophageal reflux disease without esophagitis; G47.30 Sleep apnea, unspecified; Z98.84 Bariatric surgery status
CPT/HCPCS: 99214

== ENCOUNTER → 2023-09-08 09:42 | Outpatient (BNVA) | payer OTHER, SELFPAY | PROVIDERS: PCP Family Medicine; Visit Provider Surgery ==

== ENCOUNTER 2023-10-09 08:30 | Outpatient (AMB) | payer OTHER, SELFPAY ==
--- NOTE | 2023-10-09 08:25 | A.OFFVIS_ITS ---
Intake VS Expanded 10/09/23 08:27 Height 6 ft 4 in Weight 244 lb 6.4 oz BMI 29.7 Body Fat % 28.1 Body Fat Mass 68.6 Fat Free Mass 175.8 Visceral Fat Rating 12 Body Water % 51.9 Body Water Mass 126.8 Muscle Mass/Score 167 Basal Metabolic Rate/Score 2,096 Intake Visit Reasons: (tV) PO LSG 07/07/23 Program Services Planner Required: No Allergies sulfamethoxazole [From Bactrim] Allergy (Severe, Verified 09/08/23 09:46) Anaphylaxis trimethoprim [From Bactrim] Allergy (Severe, Verified 09/08/23 09:46) Anaphylaxis Penicillins Allergy (Mild, Verified 09/08/23 09:46) Hives carbamazepine [From Tegretol] Allergy (Verified 09/08/23 09:46) Anaphylaxis doxycycline Allergy (Verified 09/08/23 09:46) Anaphylaxis linezolid Allergy (Verified 09/08/23 09:46) Rash Arwkvma-UUW-LcD Reductase Inhibitor Allergy (Verified 09/08/23 09:46) Unknown Medication List - Last Reconciled 10/09/23 by PIETRO Valadez blood pressure monitor As directed docusate sodium (Colace) 100 mg PO BID HPI HPI Comments History of Present Illness Details This?a?58?yo male who is s/p revision of LSG without hiatal hernia repair on?07/07/23. Presents for 3 month post op visit. Weight today is 244.4 pounds, with a BMI of 29.7. There has been a 80.2 pound weight loss,(initial weight 324.6 pounds) since starting the program on 12/04/22 reflecting a 24.7% total body weight loss and a weight loss of 47.3 pounds since surgery (operative weight 291.7 pounds) reflecting a 16.2% TBWL since surgery. No complaints of nausea, emesis, abdominal pain or reflux. Reports infrequent but normal bowel movements every 1-2 days and uses stool softeners regularly. He is putting his cholecystectomy on hold for now after a second opinion at [facility] (gen surg Nish). He was told they want to monitor it and will follow up with him in October. He was told if his GB needed to be removed he would be experiencing pain daily. Since he is not, he was told that surgery at this time is not justified. Present meal plan includes: Celebrate 4 in 1, 2 scoops in 8 oz almond milk 8-10 am, 5-7 pm 3 ZP bar 11-1 pm, 2-4 pm, 8-10 pm drinking 32 oz water daily ? Exercise routine includes: walking outside 5 days per week, approx 4 miles, 350 calories. [facility] Medical History Constipation Panniculitis BMI 37.0-37.9, adult Adjustment disorder, unspecified Pre-op evaluation Barretts esophagus Morbid obesity Diaphragmatic hernia Cellulitis Urethral stricture Diabetes mellitus GERD (gastroesophageal reflux disease) Barretts esophagus Hepatitis Intermittent explosive disorder PTSD (post-traumatic stress disorder) Anxiety Depression History of headache Sleep apnea Intestinal malabsorption COVID Surgical History Hx of laparoscopic partial gastrectomy History of ear surgery Hx of gastric bypass Hx of colonoscopy Hx of vasectomy Hx of hernia repair Family History Mother Heart problem Memory loss Father Stroke Son Obesity Daughter Mental health problem Anxiety Depression Social History Household Members: Family Housing: House Are you a primary anesthesiologist and critical care to a significant other at home: No Do you presently have visiting nurse or other home services: No Alcohol intake: current Alcohol intake frequency: does not drink Patient Tobacco Use Status: Never used Tobacco Review of Systems Const All systems reviewed & are unremarkable except as noted in HPI and below Assessment & Plan Assessment & Plan (1) Overweight (BMI 25.0-29.9): Code(s): E66.3 - Overweight Plan: He wishes to continue his current meal plan although will decrease ZP bar x 1 Celebrate 4 in 1, 2 scoops in 8 oz almond milk 8-10 am, 5-7 pm 2 ZP bar 11-1 pm, 2-4 pm Continue excellent walking schedule. (2) S/P laparoscopic sleeve gastrectomy: Code(s): Z98.84 - Bariatric surgery status Plan: as above Telehealth Telehealth Location of provider rendering services: practice address Location of patient: address on file Patient Identification confirmed using: Name, : Yes Telehealth method: voice only Patient verbally consented to treatment: Yes Patient verbally consented to billing insurance company: Yes Patient informed of any privacy concerns related to visit: Yes Minutes spent on Phone/Video with Pt.: 12 Coding Level of Care Code Tele Est Pt Level 3 (68641) Diagnoses Overweight (BMI 25.0-29.9) E66.3 S/P laparoscopic sleeve gastrectomy Z98.84
[2023-10-09 08:27] VITALS: BMI 29.7
== END 2023-10-09 14:54 | disposition home or self-care (01) ==
LOC: HO.HBS 12:22
PROVIDERS: PCP Family Medicine; Visit Provider Physician Assistant Surgical
DX: E66.3 Overweight (principal); Z98.84 Bariatric surgery status
CPT/HCPCS: 99213

== ENCOUNTER → 2023-10-09 08:30 | Outpatient (BNVA) | payer OTHER, SELFPAY | PROVIDERS: PCP Family Medicine; Visit Provider Physician Assistant Surgical | DX: E66.9 Obesity, unspecified (principal); K80.20 Calculus of gallbladder without cholecystitis without obstruction; E66.3 Overweight; Z98.84 Bariatric surgery status ==

== ENCOUNTER 2023-11-13 08:32 | Outpatient (AMB) | payer OTHER, SELFPAY ==
--- NOTE | 2023-11-13 08:33 | A.OFFVIS_ITS ---
Intake VS Expanded 11/13/23 08:44 BP 130/70 Blood Pressure Location Rt brachial Blood Pressure Position Sitting Pulse 76 Pulse Source Pulse Oximeter Temp 97.2 F Temperature Source Temporal Artery Scan Pulse Oximetry 96 Oxygen Delivery Method Room Air Height 6 ft 4 in Weight 252 lb 6.4 oz BMI 30.7 Body Fat % 28.7 Body Fat Mass 72.4 Fat Free Mass 179.8 Visceral Fat Rating 15.0 Body Water % 49.2 Body Water Mass 124.2 Muscle Mass/Score 171.0 Basal Metabolic Rate/Score 2,437 Intake Visit Reasons: (ov) PO LSG 07/07/23 Senior Payroll Manager Required: No Allergies sulfamethoxazole [From Bactrim] Allergy (Severe, Verified 11/13/23 08:36) Anaphylaxis trimethoprim [From Bactrim] Allergy (Severe, Verified 11/13/23 08:36) Anaphylaxis Penicillins Allergy (Mild, Verified 11/13/23 08:36) Hives carbamazepine [From Tegretol] Allergy (Verified 11/13/23 08:36) Anaphylaxis doxycycline Allergy (Verified 11/13/23 08:36) Anaphylaxis linezolid Allergy (Verified 11/13/23 08:36) Rash Rchboxr-[id number] Reductase Inhibitor Allergy (Verified 11/13/23 08:36) Unknown Medication List - Last Reconciled 11/13/23 by PIETRO Valadez blood pressure monitor As directed docusate sodium (Colace) 100 mg PO BID HPI HPI Comments History of Present Illness Details This?a?58?yo male who is s/p revision of LSG without hiatal hernia repair on?07/07/23. Presents for 4 month post op visit. Weight today is 252.4 pounds, with a BMI of 31.1. There has been a 72.2 pound weight loss,(initial weight 324.6 pounds) since starting the program on 12/04/22 reflecting a 22.2% total body weight loss and a weight loss of 39.3 pounds since surgery (operative weight 291.7 pounds) reflecting a 13.4% TBWL since surgery. No complaints of nausea, emesis, abdominal pain or reflux. Reports infrequent but normal bowel movements every 1-2 days and uses stool softeners regularly. He is putting his cholecystectomy on hold for now after a second opinion at [facility] (gen surg -Nish). He was told they want to monitor it and will follow up with him in October. He was told if his GB needed to be removed he would be experiencing pain daily. Since he is not, he was told that surgery at this time is not justified. Present meal plan includes: Celebrate 4 in 1, 2 scoops in 8 oz almond milk 8-10 am, 5-7 pm 2 ZP bar 11-1 pm, 2-4 pm drinking 32 oz water daily ? Exercise routine includes: walking outside 5 days per week, approx 4 miles, 350 calories. PFS Medical History Constipation Panniculitis BMI 37.0-37.9, adult Adjustment disorder, unspecified Pre-op evaluation Barretts esophagus Morbid obesity Diaphragmatic hernia Cellulitis Urethral stricture Diabetes mellitus GERD (gastroesophageal reflux disease) Barretts esophagus Hepatitis Intermittent explosive disorder PTSD (post-traumatic stress disorder) Anxiety Depression History of headache Sleep apnea Intestinal malabsorption COVID Surgical History Hx of laparoscopic partial gastrectomy History of ear surgery Hx of gastric bypass Hx of colonoscopy Hx of vasectomy Hx of hernia repair Family History Mother Heart problem Memory loss Father Stroke Son Obesity Daughter Mental health problem Anxiety Depression Social History Household Members: Family Housing: House Are you a primary adult live in caregiver to a significant other at home: No Do you presently have visiting nurse or other home services: No Alcohol intake: current Alcohol intake frequency: does not drink Patient Tobacco Use Status: Never used Tobacco Review of Systems Const All systems reviewed & are unremarkable except as noted in HPI and below Physical Exam Const General: healthy appearing and no acute distress Resp Effort & Inspection: normal respiratory effort Auscultation: clear to auscultation bilaterally Cardio Rate: regular rate Rhythm: regular rhythm GI Auscultation: normal bowel sounds Extrem General: Yes normal to inspection Assessment & Plan Assessment & Plan (1) S/P laparoscopic sleeve gastrectomy: Code(s): Z98.84 - Bariatric surgery status Plan: Patient states that his scale at home has been reading in the 220-230 range. It is unclear why the discrepancy between our readings here and his readings at home. He will reset his scale at home to see what is more accurate. In the meantime, he will continue his exercise routine and meal plan. He is scheduled to see Plastic surgery at the [facility] on 11/19/2023 and follow-up with general surgery at [facility] in early November. We will have him return to the office for his six-month follow-up in mid December at which point we will check labs. He will continue to text weekly as he has been doing with any questions or concerns as well as to update his weight measurements and exercise routine. (2) Obesity: Code(s): E66.9 - Obesity, unspecified Plan: as above Coding Level of Care Code Est Pt Level 3 (43456) Diagnoses S/P laparoscopic sleeve gastrectomy Z98.84 Obesity E66.9
[2023-11-13 08:44] VITALS: BP 130/70; PULSE 76; TEMP 36.2; O2SAT 96; BMI 30.7
== END 2023-11-13 09:10 | disposition home or self-care (01) ==
PROVIDERS: PCP Family Medicine; Visit Provider Physician Assistant Surgical
DX: E66.9 Obesity, unspecified (principal); Z68.30 Body mass index [BMI] 30.0-30.9, adult; Z90.3 Acquired absence of stomach [part of]; Z98.84 Bariatric surgery status
CPT/HCPCS: 99213

== ENCOUNTER → 2023-11-13 08:32 | Outpatient (BNVA) | payer OTHER, SELFPAY | PROVIDERS: PCP Family Medicine; Visit Provider Physician Assistant Surgical | DX: E66.9 Obesity, unspecified (principal); K80.20 Calculus of gallbladder without cholecystitis without obstruction ==

== ENCOUNTER 2023-12-23 12:41 | Outpatient (AMB) | payer OTHER, SELFPAY ==
--- NOTE | 2023-12-23 11:00 | MHC.OFFVISWM ---
Intake VS Expanded 12/23/23 11:01 Height 6 ft 4 in Weight 237 lb BMI 28.8 Body Fat % 26.7 Body Fat Mass 63.2 Fat Free Mass 173.8 Visceral Fat Rating 12 Body Water % 52.9 Body Water Mass 125.3 Muscle Mass/Score 165 Basal Metabolic Rate/Score 2,088 Intake Visit Reasons: (tV) PO LSG 07/07/23 Allergies sulfamethoxazole [From Bactrim] Allergy (Severe, Verified 11/13/23 08:36) Anaphylaxis trimethoprim [From Bactrim] Allergy (Severe, Verified 11/13/23 08:36) Anaphylaxis Penicillins Allergy (Mild, Verified 11/13/23 08:36) Hives carbamazepine [From Tegretol] Allergy (Verified 11/13/23 08:36) Anaphylaxis doxycycline Allergy (Verified 11/13/23 08:36) Anaphylaxis linezolid Allergy (Verified 11/13/23 08:36) Rash [id number] Reductase Inhibitor Allergy (Verified 11/13/23 08:36) Unknown HPI HPI Comments History of Present Illness Details This?a?58?yo male who is s/p revision of LSG without hiatal hernia repair on?07/07/23. Presents for 5.5 month post op visit. Weight today is 237 pounds, with a BMI of 28.8. There has been a 87.6 pound weight loss,(initial weight 324.6 pounds) since starting the program on 12/04/22 reflecting a 26.9% total body weight loss and a weight loss of 54.7 pounds since surgery (operative weight 291.7 pounds) reflecting a 18.7% TBWL since surgery. No complaints of nausea, emesis, abdominal pain or reflux. Reports infrequent but normal bowel movements every 1-2 days and uses stool softeners regularly. He is putting his cholecystectomy on hold for now after a second opinion at [facility] (gen surg Nish). He was told they want to monitor it and will follow up with him in October. He was told if his GB needed to be removed he would be experiencing pain daily. Since he is not, he was told that surgery at this time is not justified. F/u w [facility] plastic surgery, plans for skin removal and plastic surgery for 09/12/24. F/u [facility] surgery, f/u as needed. He is planning to possibly move to either [facility] (if he gets a job he applied for) or to [place], briefly for election job. Present meal plan includes: Celebrate 4 in 1, 2 scoops in 8 oz almond milk 8-10 am, 5-7 pm 2 ZP bar 11-1 pm, 2-4 pm drinking 32 oz water daily ? Exercise routine includes: walking outside 5 days per week, approx 4 miles, 350 calories. PFSH Medical History Constipation Panniculitis BMI 37.0-37.9, adult Adjustment disorder, unspecified Pre-op evaluation Barretts esophagus Morbid obesity Diaphragmatic hernia Cellulitis Urethral stricture Diabetes mellitus GERD (gastroesophageal reflux disease) Barretts esophagus Hepatitis Intermittent explosive disorder PTSD (post-traumatic stress disorder) Anxiety Depression History of headache Sleep apnea Intestinal malabsorption COVID Surgical History Hx of laparoscopic partial gastrectomy History of ear surgery Hx of gastric bypass Hx of colonoscopy Hx of vasectomy Hx of hernia repair Family History Mother Heart problem Memory loss Father Stroke Son Obesity Daughter Mental health problem Anxiety Depression Social History Household Members: Family Housing: House Are you a primary manager medicare marketing to a significant other at home: No Do you presently have visiting nurse or other home services: No Alcohol intake: current Alcohol intake frequency: does not drink Patient Tobacco Use Status: Never used Tobacco Physical Exam Vital Signs: BMI result Body Mass Index 28.8 Assessment & Plan Assessment & Plan (1) S/P laparoscopic sleeve gastrectomy: Code(s): Z98.84 - Bariatric surgery status Plan: Six-month labs have been ordered. He has a scheduled appointment for 01/05/2024. Will continue his current meal plan and exercise plan. Text with any questions or concerns. He is making good progress and is communicating several times per week. Orders: Orders Insulin Today E66.3 - Overweight, K76.0 - Fatty (change of) liver, not elsewhere classified, Z98.84 - Bariatric surgery status Hemoglobin A1c Today E66.3 - Overweight, K76.0 - Fatty (change of) liver, not elsewhere classified, Z98.84 - Bariatric surgery status Lipid Panel Today E66.3 - Overweight, K76.0 - Fatty (change of) liver, not elsewhere classified, Z98.84 - Bariatric surgery status C Reactive Protein Today E66.3 - Overweight, K76.0 - Fatty (change of) liver, not elsewhere classified, Z98.84 - Bariatric surgery status Vitamin A Today E66.3 - Overweight, K76.0 - Fatty (change of) liver, not elsewhere classified, Z98.84 - Bariatric surgery status Ferritin Today E66.3 - Overweight, K76.0 - Fatty (change of) liver, not elsewhere classified, Z98.84 - Bariatric surgery status Vitamin D 25-OH Total Today E66.3 - Overweight, K76.0 - Fatty (change of) liver, not elsewhere classified, Z98.84 - Bariatric surgery status Basic Metabolic Panel Today E66.3 - Overweight, K76.0 - Fatty (change of) liver, not elsewhere classified, Z98.84 - Bariatric surgery status Complete Blood Count Auto Diff Today E66.3 - Overweight, K76.0 - Fatty (change of) liver, not elsewhere classified, Z98.84 - Bariatric surgery status IRON PROFILE Today E66.3 - Overweight, K76.0 - Fatty (change of) liver, not elsewhere classified, Z98.84 - Bariatric surgery status Vitamin B12 and Folate Today E66.3 - Overweight, K76.0 - Fatty (change of) liver, not elsewhere classified, Z98.84 - Bariatric surgery status Zinc Today E66.3 - Overweight, K76.0 - Fatty (change of) liver, not elsewhere classified, Z98.84 - Bariatric surgery status Vitamin B1 Today E66.3 - Overweight, K76.0 - Fatty (change of) liver, not elsewhere classified, Z98.84 - Bariatric surgery status TSH reflex Free T4 Today E66.3 - Overweight, K76.0 - Fatty (change of) liver, not elsewhere classified, Z98.84 - Bariatric surgery status Telehealth Telehealth Location of provider rendering services: practice address Location of patient: other Patient Identification confirmed using: Name, : Yes Telehealth method: voice only Patient verbally consented to treatment: Yes Patient verbally consented to billing insurance company: Yes Patient informed of any privacy concerns related to visit: Yes Minutes spent on Phone/Video with Pt.: 15 Coding Level of Care Code Tele Est Pt Level 3 (76916) Diagnoses S/P laparoscopic sleeve gastrectomy Z98.84 Time Spent (min) 20
[2023-12-23 11:01] VITALS: BMI 28.8
== END 2023-12-23 12:50 | disposition home or self-care (01) ==
LOC: HO.HBS 12:41
PROVIDERS: PCP Family Medicine; Visit Provider Physician Assistant Surgical
DX: E66.3 Overweight (principal); Z68.28 Body mass index [BMI] 28.0-28.9, adult; Z90.3 Acquired absence of stomach [part of]; Z98.84 Bariatric surgery status
CPT/HCPCS: 99442

== ENCOUNTER → 2023-12-23 12:41 | Outpatient (BNVA) | payer OTHER, SELFPAY | PROVIDERS: PCP Family Medicine; Visit Provider Physician Assistant Surgical | DX: E66.9 Obesity, unspecified (principal); K80.20 Calculus of gallbladder without cholecystitis without obstruction; E66.3 Overweight; Z98.84 Bariatric surgery status; K76.0 Fatty (change of) liver, not elsewhere classified ==

== ENCOUNTER 2024-01-05 08:34 | Outpatient (AMB) | payer OTHER, SELFPAY ==
--- NOTE | 2024-01-05 08:35 | A.OFFVIS_ITS ---
Intake VS Expanded 01/05/24 08:42 BP 114/64 Blood Pressure Location Rt brachial Blood Pressure Position Sitting Pulse 110 H Pulse Source Pulse Oximeter Temp 96.9 F Temperature Source Tympanic Pulse Oximetry 97 Oxygen Delivery Method Room Air Height 6 ft 4 in Weight 250 lb BMI 30.4 Body Fat % 27.2 Body Fat Mass 68.0 Fat Free Mass 181.8 Visceral Fat Rating 14.0 Body Water % 50.3 Body Water Mass 125.6 Muscle Mass/Score 173.0 Basal Metabolic Rate/Score 2,458 Intake Visit Reasons: (OV) PO LSG 07/07/23 Regulatory Compliance Engineer Required: No Allergies sulfamethoxazole [From Bactrim] Allergy (Severe, Verified 01/05/24 08:44) Anaphylaxis trimethoprim [From Bactrim] Allergy (Severe, Verified 01/05/24 08:44) Anaphylaxis Penicillins Allergy (Mild, Verified 01/05/24 08:44) Hives carbamazepine [From Tegretol] Allergy (Verified 01/05/24 08:44) Anaphylaxis doxycycline Allergy (Verified 01/05/24 08:44) Anaphylaxis linezolid Allergy (Verified 01/05/24 08:44) Rash Nlpahhv-YGV-[id number] Reductase Inhibitor Allergy (Verified 01/05/24 08:44) Unknown Medication List - Last Reconciled 01/05/24 by PIETRO Valadez blood pressure monitor As directed docusate sodium (Colace) 100 mg PO BID HPI HPI Comments History of Present Illness Details This?a?58?yo male who is s/p revision of LSG without hiatal hernia repair on?07/07/23. Presents for 6 month post op visit. Weight today is 250 pounds, with a BMI of 30.4. There has been a 74.6 pound weight loss,(initial weight 324.6 pounds) since starting the program on 12/04/22 reflecting a 22.9% total body weight loss and a weight loss of 41.7 pounds since surgery (operative weight 291.7 pounds) reflecting a 14.2% TBWL since surgery. No complaints of nausea, emesis, abdominal pain or reflux. Reports infrequent but normal bowel movements every 1-2 days and uses stool softeners regularly. He is putting his cholecystectomy on hold for now after a second opinion at [facility] (gen surg Nish). He was told they want to monitor it and will follow up with him in October. He was told if his GB needed to be removed he would be experiencing pain daily. Since he is not, he was told that surgery at this time is not justified. F/u w [facility] plastic surgery, plans for skin removal and plastic surgery for 09/12/24. F/u [facility] surgery, f/u as needed. He is planning to possibly move to either [facility] (if he gets a job he applied for) or to [place], briefly for election job. Present meal plan includes: Celebrate 4 in 1, 2 scoops in 8 oz almond milk 8-10 am, 5-7 pm 2 ZP bar 11-1 pm, 2-4 pm drinking 32 oz water daily ? Exercise routine includes: walking outside 5 days per week, approx 4 miles, 350 calories. Any post op complications: none EMANUEL: resolved DM: resolved HTN: never Hyperlipidemia: never GERD:?0-5 scale ??0 = no symptoms ??1 = symptoms noticeable but not bothersome 2 =symptoms bothersome but not daily ? 3 = symptoms bothersome and daily 4 = symptoms affect daily activities 5 = symptoms are incapacitating, unable to do daily activities ? How bad is the heartburn: 0 ? Heartburn while lying down: 0 ? Heartburn when standing up: 0 ? Heartburn after meals: 0 ? Does heartburn change your diet: 0 ? Does heartburn wake you up from sleep: 0 ? Do you have difficulty swallowin ? Do you have pain with swallowin ? If you take medicine for your reflux, does this affect your daily life: 0 Satisfaction with present condition - satisfied or not satisfied: [facility] Medical History Constipation Panniculitis BMI 37.0-37.9, adult Adjustment disorder, unspecified Pre-op evaluation Barretts esophagus Morbid obesity Diaphragmatic hernia Cellulitis Urethral stricture Diabetes mellitus GERD (gastroesophageal reflux disease) Barretts esophagus Hepatitis Intermittent explosive disorder PTSD (post-traumatic stress disorder) Anxiety Depression History of headache Sleep apnea Intestinal malabsorption COVID Surgical History Hx of laparoscopic partial gastrectomy History of ear surgery Hx of gastric bypass Hx of colonoscopy Hx of vasectomy Hx of hernia repair Family History Mother Heart problem Memory loss Father Stroke Son Obesity Daughter Mental health problem Anxiety Depression Social History Household Members: Family Housing: House Are you a primary palliative care nurse practitioner to a significant other at home: No Do you presently have visiting nurse or other home services: No Alcohol intake: current Alcohol intake frequency: does not drink Patient Tobacco Use Status: Never used Tobacco Review of Systems Const All systems reviewed & are unremarkable except as noted in HPI and below Physical Exam Const General: cooperative and no acute distress Orientation/consciousness: patient oriented x3 Resp Effort & Inspection: normal respiratory effort Auscultation: clear to auscultation bilaterally Cardio Rate: regular rate Rhythm: regular rhythm GI Inspection: Yes normal to inspection and Yes incision (well healed) Palpation (GI): Soft to palpation and no masses Neuro General: patient oriented x3 Assessment & Plan Assessment & Plan (1) Obesity (BMI 30-39.9): Code(s): E66.9 - Obesity, unspecified Plan: Patient is making good progress. He states that he recently had a crown placed and would like to transition to just shakes as he was advised to avoid chewing on that side. He will continue with his celebrate 4 1, 2 scoops x2 and he will add celebrate rebuild 2 scoops x2. He was reminded to get his six-month labs checked which were placed on 12/23/2023. He states that he is planning on leaving the area in approximately 3 weeks. We will have him return to the office when he returns to the area. Coding Level of Care Code Est Pt Level 3 (35587) Diagnoses Obesity (BMI 30-39.9) E66.9
[2024-01-05 08:42] VITALS: BP 114/64; PULSE 110; TEMP 36.1; O2SAT 97; BMI 30.4
== END 2024-01-05 09:01 | disposition home or self-care (01) ==
PROVIDERS: PCP Family Medicine; Visit Provider Physician Assistant Surgical
DX: E66.9 Obesity, unspecified (principal)
CPT/HCPCS: 99213

== ENCOUNTER 2024-01-05 08:34 | Outpatient (REF) | payer OTHER, SELFPAY ==
[2024-01-05 09:22] LABS: MANUAL DIFF FLAG NO
[2024-01-05 10:00] LABS: Basophils Percent Auto 0.2 % (0-2); Eosinophils Absolute Auto 0.1 X10*3/uL (0.0-0.4); Hematocrit 46.3 % (42.0-52.0); Hemoglobin 15.7 g/dl (14.0-18.0); Imm Gran Abs Auto 0.02 X10*3/uL (0.00-0.03); Imm Gran Pct Auto 0.3 % (0.0-0.4); Lymphocytes Absolute Auto 1.6 X10*3/uL (1.2-4.9); Lymphocytes Percent Auto 26.3 % (20-40); Mean Corpuscular HGB Conc 33.9 g/dl (31.0-36.0); Mean Corpuscular Volume 85.6 fL (80.0-98.0); Mean Platelet Volume 10.3 fL (9.4-12.4); Monocytes Absolute Auto 0.4 X10*3/uL (0.1-1.2); Monocytes Percent Auto 6.9 % (2-11); Neutrophils Absolute Auto 3.8 x10*3/uL (2.0-8.3); Neutrophils Percent Auto 64.3 % (45-73); Platelet Count 163 X10*3/uL (160-400); Red Blood Count 5.41 X10*6/uL (4.60-5.80); Red Cell Distribution Width 13.3 % (11.0-16.0)
[2024-01-05 10:04] LABS: Estimated Average Glucose 108 mg/dL; Hemoglobin A1c % 5.4 % (<6.0)
[2024-01-05 10:32] LABS: Anion Gap 9 (12-20); Blood Urea Nitrogen 35 mg/dL (9-16); C Reactive Protein < 0.10 mg/dL (< or = 0.50); Carbon Dioxide 30 mmol/L (22-29); Chloride 108 mmol/L (96-108); Cholesterol 188 mg/dL (<200); Estimated Glomerular Filt Rate > 60; Glucose Random 108 mg/dL (60-115); HDL Cholesterol 54 mg/dL (>40); Iron 128 mcg/dL (45-160); LDL Cholesterol Calculated 125 mg/dL (<100); Percent Iron Saturation 38 % (15-50); Potassium 3.6 mmol/L (3.3-5.1); Sodium 143 mmol/L (135-145); Total Iron Binding Capacity 336 mcg/dL (228-428); Triglycerides 48 mg/dL (<150); Unsaturated Iron Binding 208 ug/dL
[2024-01-05 10:49] LABS: Ferritin 16 ng/mL (20-250); Insulin 8 uU/mL (2-29); Vitamin D 25-OH Total 28.8 ng/mL (>30)
[2024-01-05 10:59] LABS: Folate 14.9 ng/mL (> or = 4.0); Vitamin B12 831 pg/mL (200-900)
[2024-01-08 14:04] LABS: Zinc 66 mcg/dL (60-130)
[2024-01-08 17:58] LABS: Vitamin A 44 mcg/dL (38-98)
[2024-01-10 11:44] LABS: Vitamin B1 25 nmol/L (8-30)
== END 2024-01-05 08:35 | disposition home or self-care (01) ==
LOC: HO.LAB 08:34
PROVIDERS: PCP Family Medicine; Visit Provider Physician Assistant Surgical
DX: E66.3 Overweight (principal); K76.0 Fatty (change of) liver, not elsewhere classified; Z98.84 Bariatric surgery status
CPT/HCPCS: 36415; 80048; 80061; 82306; 82607; 82728; 82746; 83036; 83525; 83540; 84425; 84443; 84590; 84630; 85025; 86140